=== PATIENT | male | born 1980 | race Caucasian/White ===

== ENCOUNTER 2017-07-13 06:45 | Day surgery (SDC) | payer OTHER ==
[~2017-07-13] VITALS: Ht 170.2 cm; Wt 108.0 kg
[~2017-07-13 06:45] MED LIST: ANTACID LIQUID355 ML PO; DICLOFENAC SODI75 MG PO; EPIPEN 2-P0.3 MG/0.3 IM; EPIPEN JR0.15 MG/0. IM; MAALOX ADVANCE770 ML PO; NICOTINE PATCH1 EAC1 TD; NON-ASPIRIN EX500 M1 PO; OMEPRAZOLE40 MG PO; PEPCID20 MG PO; PROAIR HFA8.5 GM INH
--- NOTE | 2017-07-13 09:31 | NUR ---
I REQUESTED ENTRANCE INTO PT'S RM-HE MOTIONED ME IN. I INTRODUCED MYSELF, SAID MICHEL TO HIS SIGNIFICANT OTHER, AND PT ASKED WHO I WAS AGAIN, AND WHAT I WAS DOING IN HIS RM. I STATED AGAIN MY NAME AND TITLE, AND HE SAID, "PLEASE LEAVE" WELL VERY STRONGLY AND FORCEFULLY STATED, "GET OUT NOW. I DON'T KNOW WHY YOU ARE HERE, JUST LEAVE NOW". I HONORED HIS REQUEST AND IMMEDIATELY. HE SAID SOMETHING ELSE UNDER HIS BREATH I DID NOT UNDERSTAND. I IMMEDIATELY WENT TO [facility] AND SHARED MY EXPERIENCE WITH PT TO HER. SHE THANKED ME. GOD MARTÍN
--- NOTE | 2017-07-13 10:04 | NUR ---
[facility]13/17 [facility]4 [facility] O[facility] DECRE[facility] TO 6L VIA MASK.
--- NOTE | 2017-07-13 10:57 | NUR ---
PT IS BACK TO FROM PACU. UPON ARRIVAL TO HIS ROOM HE REPORTS NEEDING TO URINATE REALLY BAD, AFTER VITALS AND REPORT ARE COLLECTED PT IS ASSISTED UP OUT OF BED AND TO THE BATHROOM. PT IS ABLE TO VOID 475ML OS URINE. PT C/O PAIN IN HIS SKULL SITE, REPORTING NO PAIN IN HIS LEG. WATER AT THE BEDSIDE. CALL LIGHT WITHIN REACH. REQUESTING JELLO. NO OTHER C/O'S AT THIS TIME. WILL REASSESS WITHIN THE HOUR.
[2017-07-13] MEDS ORDERED: NORCO 5-325 TA1 EACH PO (11:06)
--- NOTE | 2017-07-13 11:32 | NUR ---
1132-PATIENT WALKING AROUND IN ROOM, GETTING DRESSED. REPORTS PAIN 10/10 HEAVY PAIN TO HEAD. DRESSING CDI. 2 NORCOS GIVEN TO PATIENT. PATIENT REPORTING READY TO LEAVE. PATIENT EDUCATED ON NEED TO STAY FOR ANOTHER 30 MINUTES. PATIENT VERBALIZED UNDERSTANDING. AT BEDSIDE.
--- NOTE | 2017-07-13 12:07 | NUR ---
LE 1149: PT IS UP WALKING ROOM, DRESSED AND READY TO DISCHARGE. PT HAS MET ALL CRITERIA TO DC. IV IS REMOVED, DC INSTRUCTIONS GIVEN, ALL QUESITONS ASKED AND ANSWERED.
--- NOTE | 2017-07-14 11:31 | OR ---
[facility] [address] [place], [place] [address] Signed DATE OF PROCEDURE: 07/13/17 PREOPERATIVE DIAGNOSES Subcutaneous frontal scalp lesion (15-20 mm). Left mid pretibial subcutaneous lesion (12-15 mm). 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 Left mid pretibial subcutaneous sebaceous cyst (12-15 mm). PROCEDURE Excision of subcutaneous frontal scalp lesion. Excision of left mid pretibial subcutaneous lesion. ESTIMATED BLOOD LOSS: None. INDICATIONS Neri is a 36-year-old gentleman who was asked to see me in the office with 2 lesions. He has a left mid pretibial subcutaneous lesion around 12-15 mm in diameter. He thinks he hit that area with a chain saw a few years ago. He thought it healed up and now it is swollen, it is red and painful and he said it shoots pain up his leg. He said he is pretty worried about it and he had mentioned it to his primary care provider. In addition, he has a subcutaneous mass over the top of his frontal scalp. It is just behind the hairline. The whole area was almost 3. 5 to 4 cm in diameter. He said it is getting difficult to put on his hat. He finally decided he wanted me to look at that as well. He took a course of doxycycline and neither lesion cleared up. I explained to Neri and his that both lesions could be r e moved surgically. The lesion on the scalp was far too large to do in the office and it needs good lighting with cautery for excellent hemostasis. The lesion over the left pretibial area would be easy enough to remove. I explained to Neri and his there is risk to surgery including, but not limited to bleeding, infection, scarring, change in contour of the skin as well as recurrent lesions in the same or other locations. They had expressed understanding and wished to proceed. PROCEDURE NOTE I met with Noy espinoza and his in our preop area. 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 Consequently, it was quite easy to see the lesion on the frontal scalp, that was easily marked. In addition, the lesion on his left mid pretibial area was also easily located and we circled that as well. After this, Neri was taken into the operating room and placed in the supine position under general anesthesia with our LMA mask. He was given preoperative antibiotics al o ng with subcutaneous heparin. SCDs were utilized. We approached the Electronically Signed By: NOE RENE MD 07/14/17 1131 PATIENT NAME: NERI PHOENIX OPERATIVE REPORT DATE OF : 78 PHYSICIAN: NOE RENE MD REPORT #: [id number] REPORT IS CONFIDENTIAL AND NOT TO BE RELEASED WITHOUT AUTHORIZATION [address] [address] Signed scalp lesion first. We made a transverse incision to keep our scar within the hairline. We carefully went down to the lesion and after some careful dissection and excellent hemostasis with our needlepoint cautery, we found that he indeed had a lipoma. We carefully removed that lesion and it was probably 15-20 mm in diameter. Local anesthetic had been injected in and around the lesion. We closed the dermis with interrupted 5-0 subcuticular Monocryl sutures. The skin edges were closed with a running 6-0 fast absorbing plain gut suture. The wound had been irrigated and suctioned out until clear. Dry gauze and tape were then applied. After this, we approached his left mid pretibial lesion. A vertical incision was made over that and carefully went around that with our cautery and we found that he had a sebaceous cyst, probably 12-15 mm in diameter. It was completely excised and passed off the field. We used interrupted 2-0 nylon vertical mattress suture to close the skin. We then used our 6-0 fast absorbing plain gut suture to approximate the skin edges. Dry gauze and tape were then applied. Neri was then awakened from his anesthesia, extubated in the OR, taken to recovery room in stable condition. MD IKE Parks/Emigdio /[id number] cc: Raphael Nascimento MD Electronically Signed By: NOE RENE MD 07/14/17 1131 PATIENT NAME: NERI PHOENIX OPERATIVE REPORT DATE OF : 78 PHYSICIAN: NOE RENE MD REPORT #: [id number] REPORT IS CONFIDENTIAL AND NOT TO BE RELEASED WITHOUT AUTHORIZATION
== END 2017-07-13 12:00 | disposition home or self-care (01) ==
LOC: DS 06:45
PROVIDERS: Colon & Rectal Surgery
PROC: 0HBLXZZ Excision of Left Lower Leg Skin, External Approach (ICD-10-PCS; 2017-07-13)
PROC: 0JB00ZZ Excision of Scalp Subcutaneous Tissue and Fascia, Open Approach (ICD-10-PCS; 2017-07-13)
PROC: 0JB00ZZ Excision of Scalp Subcutaneous Tissue and Fascia, Open Approach (ICD-10-PCS; principal; 2017-07-13 08:15)
DX: D17.0 Benign lipomatous neoplasm of skin and subcutaneous tissue of head, face and neck (principal); J45.909 Unspecified asthma, uncomplicated; K21.9 Gastro-esophageal reflux disease without esophagitis; Z87.891 Personal history of nicotine dependence; Z91.030 Bee allergy status; Z98.890 Other specified postprocedural states; Z79.899 Other long term (current) drug therapy; Z88.5 Allergy status to narcotic agent; Z88.8 Allergy status to other drugs, medicaments and biological substances
CPT/HCPCS: 00300; J0330; J0690; J1100; J1644; J2250; J2405; J2704; J3010; J7120

== ENCOUNTER 2018-01-29 18:06 | Emergency (ER) | payer OTHER ==
[~2018-01-29] VITALS: Ht 170.2 cm; Wt 99.8 kg
--- OUTSIDE RECORDS SUMMARY | ~2018-01-29 | XMS | Clinical Summary ---
Demographics + + + | Address | [address] | | | [place] [address] | + + + | Home Phone | | + + + | Preferred Language | Unknown | + + + | Marital Status | Unknown | + + + | Congregation Affiliation | Unknown | + + + | Race | Unknown | + + + | Ethnic Group | Unknown | + + + Author + + + | Author | [facility] | + + + | Organization | [facility] | + + + | Address | Unknown | + + + | Phone | Unavailable | + + + Care Team Providers + +------+ + | Care Flatbed Truck Driver Name | Role | Phone | + +------+ + PP | Unavailable | + +------+ + Allergies Not on File Current Medications Not on file Active Problems Not on file Social History + +-------+ +--------+------+ | Tobacco Use | Types | Packs/Day | Years | Date | | | | | Used | | + +-------+ +--------+------+ | Never Assessed | | | | | + +-------+ +--------+------+ + + + | Sex Assigned at | Date Recorded | | | | + + + | Not on file | | + + + Plan of Treatment + + + + + | Health Maintenance | Due Date | Last Done | Comments | + + + + + | Vaccine: | | | | | Dtap/Tdap/Td (1 - | 9 | | | | Tdap) | | | | + + + + + | Vaccine: Influenza | | | | | (Season Ended) | 8 | | | + + + + + Results Not on filefrom Last 3 Months Insurance + +--------+ +------+-------+ + | Payer | Benefi | Subscriber | Type | Phone | Address | | | t Plan | ID | | | | | | / | | | | | | | Group | | | | | + +--------+ +------+-------+ + | MEDICAID | [employer] | xxxxxxxx | | | [address] | | | N | | | | [place] | | | [place] | | | | [address] | | | INFORMATION OFFICER | | | | | + +--------+ +------+-------+ + + +--------+ +--------+ + + | Guarantor Name | Accoun | Relation to | Date | Phone | Billing Address | | | t Type | Patient | of | | | | | | | | | | + +--------+ +--------+ + + | NERI PHOENIX | Person | Self [birth year] Home: | [address] | | | [place] | | 1981 | [phone] | [place] [address] | | | [place] | | | [phone] | | + +--------+ +--------+ + +"
--- OUTSIDE RECORDS SUMMARY | ~2018-01-29 | XMS | Clinical Summary ---
Demographics + + + | Address | [address] | | | [place] [address] | + + + | Home Phone | | + + + | Preferred Language | Unknown | + + + | Marital Status | Unknown | + + + | Hinduism Affiliation | Unknown | + + + | Race | Unknown | + + + | Ethnic Group | Unknown | + + + Author + + + | Author | [facility] | + + + | Organization | [facility] | + + + | Address | Unknown | + + + | Phone | Unavailable | + + + Care Team Providers + +------+ + | Care Blender Operator Name | Role | Phone | + [...] | | [place] | | | | [phone] | | | SPEECH THERAPY TEACHER | | | | | + +--------+ [...] Self | [birth year] Home: | [address] | | | [place] | | 1981 | [phone] | [place] [address] | | | [place] | | | [address] | | + +--------+ +--------+ + +"
[~2018-01-29 18:06] MED LIST changes: +NORCO 5-325 TA1 EACH PO
[2018-01-29] MEDS ORDERED: METHYLPREDNISOLO4 M1 PO (18:27)
[2018-01-29] MEDS ORDERED: ZITHROMAX250 MG PO (18:27)
== END 2018-01-29 19:06 | disposition home or self-care (01) ==
LOC: ED 18:06
DX: J45.901 Unspecified asthma with (acute) exacerbation (principal); Z88.5 Allergy status to narcotic agent; Z88.6 Allergy status to analgesic agent
CPT/HCPCS: 94640; 96374; 96375; 99283; J2060; J2930

== ENCOUNTER 2019-01-10 09:06 | Emergency (ER) | payer OTHER ==
[~2019-01-10] VITALS: Ht 170.2 cm; Wt 99.8 kg
--- OUTSIDE RECORDS SUMMARY | ~2019-01-10 | XMS | Encounter Summary ---
Demographics + + + | Address | [address] | | | [place] [address] | + + + | Home Phone | | + + + | Preferred Language | Unknown | + + + | Marital Status | Single | + + + | Jainism Affiliation | Unknown | + + + | Race | Unknown | + + + | Ethnic Group | Unknown | + + + Author + + + | Author | [facility] | + + + | Organization | [facility] | + + + | Address | Unknown | + + + | Phone | Unavailable | + + + Support + + +---------+ + | Name | Relationship | Address | Phone | + + +---------+ + | None,Provided | ECON | Unknown | | + + +---------+ + Care Team Providers + +------+ + | Care Wood Scaler Name | Role | Phone | + +------+ + | None, Per Pt | PCP | 000-0000 | + +------+ + Encounter Details +--------+ + + + + | Date | Type | Department | Care Team | Description | +--------+ + + + + | 01/06/ | Procedure | [facility] | | | | 2019 | [facility] | | | | | | Operating Room [address] | | | | | | [facility] | | | | | | [place] [address] | | | | | | [phone] | | | +--------+ + + + + Social History + +-------+ +--------+------+ | Tobacco Use | Types | Packs/Day | Years | Date | | | | | Used | | + +-------+ +--------+------+ | Never Smoker | | | | | + +-------+ +--------+------+ + +---+---+---+ | Smokeless Tobacco: | | | | | Never Used | | | | + +---+---+---+ + + +---------+ + | Alcohol Use | Drinks/We | oz/Week | Comments | | | ek | | | + + +---------+ + | No | | | | + + +---------+ + + + + | Sex Assigned at | Date Recorded | | | | + + + | Not on file | | + + + as of this encounter Plan of Treatment +--------+ + + + + | Date | Type | Specialty | Care Team | Description | +--------+ + + + + | 01/16/ | Clinical | Neurosurgery | Hansel Treviño, | | | 2018 | Support | | [facility] [address] | | | | | | [address], | | | | | | [place] [address] | | | | | | [phone] | | | | | | | | +--------+ + + + + as of this encounter Visit Diagnoses Not on filein this encounter"
--- OUTSIDE RECORDS SUMMARY | ~2019-01-10 | XMS | Encounter Summary ---
Demographics + + + | Address | [address] | | | [place] [address] | + + + | Home Phone | | + + + | Preferred Language | Unknown | + + + | Marital Status | Single | + + + | Roman Catholic Affiliation | Unknown | + + + | Race | Unknown | + + + | Ethnic Group | Unknown | + + + Author + + + | Author | [facility] | + + + | Organization | [facility] | + + + | Address | Unknown | + + + | Phone | Unavailable | + + + Support + + +---------+ + | Name | Relationship | Address | Phone | + + +---------+ + | None,Provided | ECON | Unknown | | + + +---------+ + Care Team Providers + +------+ + | Care Communications Editor Name | Role | Phone | + +------+ + | None, Per Pt | PCP | 000-0000 | + +------+ + Reason for Visit Auth/Cert +--------+--------+ + + + + | Status | Reason | Specialty | Diagnoses / | Referred By | Referred To | | | | | Procedures | Contact | Contact | +--------+--------+ + + + + | | | | Diagnoses | | Una, | | | | | see chart | | MD Mateus | | | | | note | | [address] | | | | | | | [address] | | | | | | | [place] | | | | | | | [address] Phone: | | | | | | | [phone] | | | | | | | Fax: | | | | | | | [phone] | +--------+--------+ + + + + Encounter Details +--------+ + + + + | Date | Type | Department | Care Team | Description | +--------+ + + + + | 01/06/ | Anesthesia | [facility] | | | 2019 | Event | [facility] | MD Melissa [address] | | | | | Operating Room [address] | | | | [address] | [place] [address] | | | | | [place] [address] | [phone] | | | | | [phone] | | | +--------+ + + + + Anesthesia Record + + + + + | Procedure Name | Responsible | Anesthesia Start | Anesthesia Stop Time | | | Anesthesiologist | Time | | + + + + + | LUMBAR - DISCECTOMY | Nova Pham, | 01/06/19 1137 | 01/06/19 1327 | | (Right Spine Lumbar) | MD | | | + + + + + +----+---+ + + | Da | T | Event | Comment | | te | i | | | | | m | | | | | e | | | +----+---+ + + | 03 | 1 | An Start | Pre-anesthetic vital signs reassessed. | | /1 | 1 | | | | 8/ | 3 | | | | 20 | 7 | | | | 19 | | | | +----+---+ + + | | 1 | An | | | | 1 | Induction | | | | 4 | | | | | 0 | | | +----+---+ + + | | 1 | An | | | | 1 | Intubation | | | | 4 | | | | | 3 | | | +----+---+ + + | | 1 | Quick Note | TOF 4/4 | | | 2 | | | | | 5 | | | | | 9 | | | +----+---+ + + | | 1 | An | | | | 3 | Emergence | | | | 1 | | | | | 5 | | | +----+---+ + + | | 1 | Extubation | | | | 3 | | | | | 2 | | | | | 0 | | | +----+---+ + + | | 1 | an stop | | | | 3 | data | | | | 2 | | | | | 1 | | | +----+---+ + + | | 1 | An Stop | | | | 3 | | | | | 2 | | | | | 7 | | | +----+---+ + + +------+ | Meds | +------+ + +---------+ | Name | Total | + +---------+ | ceFAZolin (ANCEF) 1 g | 2 g | + +---------+ | midazolam 1 mg/mL | 2 mg | + +---------+ | fentanyl 50 mcg/mL | 300 mcg | + +---------+ | lidocaine 2% | 80 mg | + +---------+ | propofol bolus | 200 mg | + +---------+ | ROCuronium 10 mg/mL | 50 mg | + +---------+ | dexamethasone 4 mg/mL | 8 mg | + +---------+ | ondansetron 2 mg/mL | 4 mg | + +---------+ | glycopyrrolate 0.2 mg/mL | 0.8 mg | + +---------+ | neostigmine | 5 mg | + +---------+ | plasmalyte-A | 0 mL | + +---------+ + + | Name | + + | N2O | + + | O2 | + + | Air | + + | Sevoflurane-EX | + + | N2O | + + + + | No blood administrations on file. | + + +--------+ + + + | Type | Details | Placement | Removal | +--------+ + + + | Wound | 01/06/19; 1211; Incision; Back | 01/06/19 1211 by | | | | | Stalin Cordoba RN | | +--------+ + + + | Periph | Placement Date: 01/06/19; | 01/06/19 1056 by Bernardo | 01/06/19 1517 by | | heriberto | Placement Time: 1056; Removal | Katie Browning RN | Sully Mayer RN | | IV | Date: 01/06/19; Removal Time: | | | | | 1517; Size (Gauge): 20 G; | | | | | Orientation: Right; Location: | | | | | Forearm; Site Prep: | | | | | Chlorhexidine-Isopropyl Alcohol; | | | | | Insertion Attempts: 2 | | | +--------+ + + + | ETT | Placement Date: 01/06/19; | 01/06/19 1143 by | 01/06/19 1355 by Bernardo | | | Placement Time: 1143; Removal | Nova Abebealeida Ankit, | Katie Browning RN | | | Date: 01/06/19; Removal Time: | MD | | | | 1355; Mask Airway: Easy; Blade | | | | | Type: Hernandez; Blade Size: 2; ETT | | | | | Type: Standard ETT; ETT Size | | | | | (Fr): 7.5; Technique: Direct | | | | | Laryngoscope; Grade: I; Insertion | | | | | attempts: 1; Confirmation: | | | | | EtCO2, Direct visualization; | | | | | Intubation Details: Easy; Taped | | | | | at (cm): 23; Secured at: Lips | | | +--------+ + + + in this encounter Social History + +-------+ +--------+------+ | Tobacco [...] Neurosurgery | Hansel Treviño, | | | 2019 | Support | | BROACH GRINDER [address] | | | | | | [address], | | | | | | [place] [address] | | | | | | [phone] | | | | | | | | +--------+ + + + + as of this encounter Visit Diagnoses Not on filein this encounter Administered Medications + +--------+ +------+------+------+ | Medication Order | MAR | Action | Dose | Rate | Site | | | Action | Date | | | | + +--------+ +------+------+------+ | ceFAZolin (ANCEF) injection | Given | | 2 g | | | | Intravenous, PRN, Starting Mon | | 9 11:48 | | | | | 01/06/19 at 1148, Anesthesia | | PDT | | | | | Intra-op | | | | | | + +--------+ +------+------+------+ +---+---+ | | | +---+---+ + +-------+ +------+---+---+ | dexamethasone (DECADRON) 4 | Given | | 8 mg | | | | MG/ML injection PRN, Starting | | 9 11:40 | | | | | 01/06/19 at 1140, Anesthesia | | PDT | | | | | Intra-op | | | | | | + +-------+ +------+---+---+ +---+---+ | | | +---+---+ + +---------+ +---+---+---+ | electrolyte-A (PLASMALYTE-A) | New Bag | | | | | | solution Intravenous, Continuous | | 9 11:37 | | | | | PRN, Starting Sun01/06/19 at | | PDT | | | | | 1137, Anesthesia Intra-op | | | | | | + +---------+ +---+---+---+ +---+---+ | | | +---+---+ + +-------+ +---------+---+---+ | fentaNYL (SUBLIMAZE) injection | Given | | 100 mcg | | | | Intravenous, PRN, Starting Mon | | 9 12:01 | | | | | 01/06/19 at 1140, Anesthesia | | PDT | | | | | Intra-op | | | | | | + +-------+ +---------+---+---+ +-------+ +--------+---+---+ | Given | | 50 mcg | | | | | 9 13:25 | | | | | | PDT | | | | +-------+ +--------+---+---+ | Given | | 50 mcg | | | | | 9 13:27 | | | | | | PDT | | | | +-------+ +--------+---+---+ +---+---+ | | | +---+---+ + +-------+ +--------+---+---+ | glycopyrrolate (ROBROBB) | Given | | 0.8 mg | | | | injection PRN, Starting Mon | | 9 13:06 | | | | | 01/06/19 at 1306, Anesthesia | | PDT | | | | | Intra-op | | | | | | + +-------+ +--------+---+---+ +---+---+ | | | +---+---+ + +-------+ +-------+---+---+ | lidocaine 2 % (MDV) 2 % | Given | | 80 mg | | | | injection Intravenous, PRN, | | 9 11:40 | | | | | Starting [facility] 01/06/19 at 1140, | | PDT | | | | | Anesthesia Intra-op | | | | | | + +-------+ +-------+---+---+ +---+---+ | | | +---+---+ + +-------+ +------+---+---+ | midazolam (VERSED) injection | Given | | 2 mg | | | | PRN, Starting Sun01/06/19 at | | 9 11:37 | | | | | 1137, Anesthesia Intra-op | | PDT | | | | + +-------+ +------+---+---+ +---+---+ | | | +---+---+ + +-------+ +------+---+---+ | neostigmine (PROSTIGMINE) | Given | | 5 mg | | | | injection PRN, Starting Mon | | 9 13:06 | | | | | 01/06/19 at 1306, Anesthesia | | PDT | | | | | Intra-op | | | | | | + +-------+ +------+---+---+ +---+---+ | | | +---+---+ + +-------+ +------+---+---+ | ondansetron (ZOFRAN) injection | Given | | 4 mg | | | | PRN, Nausea, Vomiting, Starting | | 9 13:06 | | | | | 01/06/19 at 1306, Anesthesia | | PDT | | | | | Intra-op | | | | | | + +-------+ +------+---+---+ +---+---+ | | | +---+---+ + +-------+ +--------+---+---+ | propofol (DIPRIVAN) injection | Given | | 200 mg | | | | Intravenous, PRN, Starting Sun | | 11:40 | | | | | 01/06/19 at 1140, Anesthesia | | PDT | | | | | Intra-op | | | | | | + +-------+ +--------+---+---+ +---+---+ | | | +---+---+ + +-------+ +-------+---+---+ | rocuronium (ZEMURON) injection | Given | | 50 mg | | | | PRN, Starting Sun01/06/19 at | | 9 11:40 | | | | | 1140, Anesthesia Intra-op | | PDT | | | | + +-------+ +-------+---+---+ +---+---+ | | | +---+---+ in this encounter"
--- OUTSIDE RECORDS SUMMARY | ~2019-01-10 | XMS | Encounter Summary ---
Demographics + + + | Address | [address] | | | [place] [address] | + + + | Home Phone | | + + + | Preferred Language | Unknown | + + + | Marital Status | Single | + + + | Zoroastrianism Affiliation | Unknown | + + + | Race | Unknown | + + + | Ethnic Group | Unknown | + + + Author + + + | Author | [facility] | + + + | Organization | [facility] | + + + | Address | Unknown | + + + | Phone | Unavailable | + + + Support + + +---------+ + | Name | Relationship | Address | Phone | + + +---------+ + | None,Provided | ECON | Unknown | | + + +---------+ + Care Team Providers + +------+ + | Care Routing Equipment Tender Name | Role | Phone | + [...] | | see chart | | MD Jazzy | | | | | note | | [address] | | | | | | | Drive | | | | | | | [place] | | | | | | | [address] Phone: | | | | | | | [phone] | | | | | | | Fax: | | | | | | | [phone] | +--------+--------+ + + + + Encounter Details +--------+ + + + + | Date | Type | Department | Care Team | Description | +--------+ + + + + | 01/06/ | Hospital | [facility] | Jazzy Heart MD | Herniated lumbar | | 2019 | [facility] | [address] | intervertebral disc | | | | [address] | Drive [place], [place] | (Primary Dx); Lumbar | | | | [place] [address] | [address] | disc herniation | | | | [phone] | | with radiculopathy; | | | | | | Lumbar radiculopathy | +--------+ + + + + Social [...] + + + as of this encounter Last Filed Vital Signs + + + + | Vital Sign | Reading | Time Taken | + + + + | Blood Pressure | 125/72 | 01/06/2019 3:25 PM PDT | + + + + | Pulse | 84 | 01/06/2019 3:25 PM PDT | + + + + | Temperature | 36.7 C (98 F) | 01/06/2019 3:25 PM PDT | + + + + | Respiratory Rate | 16 | 01/06/2019 3:25 PM PDT | + + + + | Oxygen Saturation | 96% | 01/06/2019 3:25 PM PDT | + + + + | Inhaled Oxygen | - | - | | Concentration | | | + + + + | Weight | 103.2 kg (227 lb 8.2 | 01/06/2019 10:27 AM PDT | | | oz) | | + + + + | Height | 170.2 cm (5' 7") | 01/06/2019 10:27 AM PDT | + + + + | Body Mass Index | 35.63 | 01/06/2019 10:27 AM PDT | + + + + in this encounter Discharge Instructions Bernardo Browning RN - 01/06/2019Dr. Heart Spine Surgery Discharge Instructions Call the office to confirm your first post-operative appointment. In genera l, you will be seen approximately 10-14 days after surgery for a wound check. YOUR INCISION: The dressing should be changed daily until there is no drainage then the incision can be le ft open to air. Some drainage can be normal for several days, but you should call if there is persistent or unusual drainage, swelling, or redness which develops. If your incision has steri-strips over it, these will come off on their own usually in the first 1-2 weeks. Do not apply creams, lotions, or ointments to the incision unless instructed to do so. Krish p the incision clean and dry. You may shower after 48 hours and pat the incision dry, but try to avoid having the water r un directly on the incision. You can cover the incision with a waterproof Tegaderm for the first few days but after this it is not necessary. Do not soak the incision under water suc h as in a pool or bath. You can usually resume the pool or bath about 3 weeks after the sarai dina if there are no wound healing problems. ACTIVITY: Do not lift more than 10 pounds (approximately one gallon of milk). You will be given inst ruction about gradually increasing your lifting at your follow-up appointment. Walking can be done as much as tolerated, but start with short distances on firm, level sarai faces. Avoid bending, twisting, pushing, pulling, overhead lifting, or prolonged sitting. You may sleep in any position which is comfortable for you. No fiction and nonfiction author, yard work, or recreational activities unless otherwise instructed. You may resume driving after your first post-operative visit (10-14 days after the surgery) . You should NOT be driving or operating machinery if taking pain medications or muscle rel axers. Return to work will depend on your occupation and will be discussed individually with each patient. DIET: Resume your regular diet. Remember, pain medications cause constipation so use an over-the -counter stool softener (i.e. Colace, Senokot), and increase your water and fiber intake. M agnesium citrate is a bowel prep agent and can be used if nothing else is working. MEDICATIONS: You may resume your home medications. You may resume aspirin (if you were taking this) aft er one week. If you were taking Coumadin or Plavix and it was stopped before surgery, resta rting this needs to be discussed with your physician. Take your pain medications and muscle relaxers "as needed". You may wean off of them as yo ur pain decreases. Medication refills can be requested from your pharmacy. Please request these at least 2 days before you run out. The pharmacy will contact our office to approve t he refill. Medications will not be refilled on weekends or after office hours. WHEN TO CALL THE DOCTOR: If you have a fever over 101.0 degrees If you have any unusual drainage, odor, swelling, or redness of the incision Inability to urinate Constipation which does not resolve after a few days If you have any new pain, numbness, or weakness in your arms or legs Any other concerns After Your Surgery You ve just had surgery. During surgery, you received medication called anesthesia to krish p you comfortable and pain-free. After surgery, you may experience some pain or nausea. This is common. Going Home Have an adult family member or friend drive you home. For the first 24 hours after your sarai dina: ? Do not drive or use heavy equipment. ? Do not make important decisions or sign legal documents. ? Avoid alcohol. ? Have someone stay with you, if needed. He or she can watch for problems and help keep you safe. Be sure to keep all follow-up appointments with your doctor. And rest after your procedure for as long as your doctor tells you to. Coping with Pain If you have pain after surgery, pain medication will help you feel better. Take your medica tion as directed, before pain becomes severe. Consider other ways to control pain, such as with heat, ice, and relaxation. To get the best relief possible, remember these points: ? Pain medications can upset your stomach. Taking them with a little food may help. ? Most pain relievers taken by mouth need at least 20 to 30 minutes to take effect. ? Taking medication on a schedule can help you remember to take it. Try to time your medica tion so that you can take it before beginning an activity, such as dressing, walking, or sit ting down for dinner. ? Don t drink alcohol while taking pain medication. ? Don t drive or operate machinery while taking pain medications as they can slow your re flexes. If your health care provider tells you to take acetaminophen or ibuprofen to help relieve y our pain, ask him or her how much you are supposed to take each day. Constipation ? Constipation is a common side effect of pain medications and anesthetics. Contact your do ctor before taking any medications like laxatives or stool softeners to help relieve constip ation, unless they have been prescribed for you. ? Drinking lots of non-alcoholic fluids and eating foods like fruits and vegetables that ar e high in fiber can also help. Managing Nausea Some people have an upset stomach after surgery. This is often due to anesthesia, pain, christina n medications, or the stress of surgery. If you were on a special diet before surgery, ask your doctor if you should follow it during recovery. These tips may help: ? Don t push yourself to eat. Your body will tell you when to eat and how much. ? Start off with clear liquids and soup. They are easier to digest. Slowly move to solid f oods. Don t eat fatty, rich, or spicy foods at first. ? Don t force yourself to have three large meals a day. Instead, eat smaller amounts more often. Blood Clot Prevention Deep vein thrombosis (DVT) is a clot that forms in your deep veins usually in the leg o r thigh. A pulmonary embolism (PE) occurs when a clot in the bloodstream travels through th e heart and into the lungs. If the clot becomes stuck in a blood vessel in the lungs, blood flow can be blocked which causes life-threatening heart and lung problems. The following are prevention tips: ? Elevate your legs whenever they feel swollen or heavy ? Maintain a healthy weight ? Quit smoking ? Avoid sitting, standing, or lying down for long periods without moving your legs and feet . o When traveling by car, make frequent stops to get out and move around. o On long airplane, train, or bus rides, get up and move around when possible. o If you can t get up, wiggle your toes and tighten your calves to keep your blood moving . If you have any of these symptoms of DVT or PE, call your doctor: ? Swelling, pain, or both, often in one limb ? Redness or warmth, often in one limb ? Sudden, continuous pain deep in your muscle ? Worsening ache when you are active or when you stand still for a long time ? Rapid, pounding, or unusual heartbeat ? Sweating more than usual. ? Chest pain, trouble breathing, coughing up blood, skin turning blue, or fainting Call 911. in this encounter Medications at Time of Discharge + + +--------+---------+ + + | Medication | Sig. | Disp. | Refills | Start | End Date | | | | | | Date | | + + +--------+---------+ + + | albuterol | | | 0 | 12/19/19 | | | (PROVENTIL | | | | 19 | | | HFA;VENTOLIN HFA) | | | | | | | 108 (90 Base) | | | | | | | MCG/ACT inhaler | | | | | | + + +--------+---------+ + + | diazePAM (VALIUM) | Take 1 tablet by | 30 | 0 | 01/07/20 | | | 5 MG | mouth every 6 (six) | tablet | | 19 | | | tabletIndications: | hours as needed for | | | | | | Herniated lumbar | Muscle spasms. | | | | | | intervertebral disc | | | | | | + + +--------+---------+ + + | | Take 1-2 tablets by | 60 | 0 | 01/07/20 | | | HYDROcodone-acetamin | mouth every 6 (six) | tablet | | 19 | | | ophen (NORCO) | hours as needed for | | | | | | 7.5-325 MG per | Pain. | | | | | | tablet | | | | | | + + +--------+---------+ + + | | Inhale 3 mLs into | | | | | | ipratropium-albutero | the lungs. | | | | | | l (DUO-NEB) 0.5-2.5 | | | | | | | mg/3mL | | | | | | + + +--------+---------+ + + | QVAR REDIHALER 40 | | | 0 | 12/18/19 | | | MCG/ACT inhaler | | | | 19 | | + + +--------+---------+ + + as of this encounter Progress Notes Jazzy Heart MD - 01/06/2019 2:38 PM [facility] Service: Neurological Surgery Progress Note Hospital Day: LOS: 0 days Post-Op Day: Day of Surgery SUBJECTIVE Doing well. Wants to go home. OBJECTIVE Vital Signs: BP 117/57 | Pulse 80 | Temp 99.8 F (37.7 C) | Resp 23 | Ht 1.702 m (5' 7") | Wt 10 3.2 kg (227 lb 8.2 oz) | SpO2 94% | BMI 35.63 kg/m Input/Output Last 3 shifts No intake/output data recorded. Input/Output Last shift I/O this shift: In: - Out: 300 [Urine:300] Physical Exam: Alert and oriented x 3. Moves UE and LE 02/23. Incision C/D/I. ASSESSMENT & PLAN Discharge home. Followup ~ 2 weeks postop. Discharge instructions given (and provided in preop packet and discharge papers). Call office [phone] if any questions or problems or return to [facility]. JAZZY HEART MD 01/06/2019 in this encounter Plan of Treatment +--------+ + + + + | Date | Type | Specialty | Care Team | Description | +--------+ + + + + | 01/16/ | Clinical | Neurosurgery | Hansel Treviño, | | | 2019 | Support | | CUT OUT MACHINE OPERATOR [address] | | | | | | [address] [place], | | | | | | [place] [address] | | | | | | [phone] | | | | | | | | +--------+ + + + + as of this encounter Procedures + +--------+ + + + | Procedure Name | Priori | Date/Time | Associated Diagnosis | Comments | | | ty | | | | + +--------+ + + + | BALTA CHAKRABORTY | Routin | 01/06/2019 | | Results for this | | TO 1 HOUR | e | 1:30 PM | | procedure are in the | | | | PDT | | results section. | + +--------+ + + + | LUMBAR - DISCECTOMY | | 01/06/2019 | see chart note | | | | | 11:00 AM | | | | | | PDT | | | + +--------+ + + + +---+--------+ | | | | | Specia | | | l | | | Needs | | | | | | micros | | | cope, | | | jose | | | | | | frame, | | | 1 | | | hour, | | | Pt has | | | woke | | | up | | | during | | | EGD, | | | Combat | | | zoë in | | | PACU | | | in | | | past, | | | sleep | | | apnea/ | | | no | | | CPAP | +---+--------+ in this encounter Results X-ray C-arm fluoro up to 1 hour (01/06/2019 1:30 PM) + + + | Impressions | Performed At | + + + | Surgical localization at the level of L4-5. Signed by: Yanet | [place] | | Parmjit Sign Date/Time: 01/06/2019 3:42 PM | RADIOLOGY | + + + + + + | Narrative | Performed At | + + + | C-ARM <60 W/FLUORO CLINICAL INFORMATION: discectomy right L4-5 | [facility] | | FINDINGS: 2.7 seconds of fluoroscopy was utilized by Dr. Jazzy Magana | RADIOLOGY | | Una during surgery. Surgical localization is noted at the level of | | | L4-5. Total number of images: 1. | | + + + + + | Procedure Note | + + | Yoandy Sharif Results In 01/06/2019 3:45 PM PDT C-ARM <60 W/FLUORO | | CLINICAL INFORMATION: | | discectomy right L4-5 | | FINDINGS: | | 2.7 seconds of fluoroscopy was utilized by Dr. Jazzy Heart during | | surgery. | | Surgical localization is noted at the level of L4-5. | | Total number of images: 1. | | IMPRESSION: | | Surgical localization at the level of L4-5. | | Signed by: Parmjit Holt | | Sign Date/Time: 01/06/2019 3:42 PM | + + + + + + + | Performing | Address | City/State/Zipcode | Phone Number | | Organization | | | | + + + + + | [facility] | [address] | [place] [address] | | + + + + + in this encounter Visit Diagnoses + + | Diagnosis | + + | Herniated lumbar intervertebral disc - Primary | + + | Displacement of lumbar intervertebral disc without myelopathy | + + | Lumbar disc herniation with radiculopathy | + + | Displacement of lumbar intervertebral disc without myelopathy | + + | Lumbar radiculopathy | + + | Thoracic or lumbosacral neuritis or radiculitis, unspecified | + + Admitting Diagnoses + + | Diagnosis | + + | Lumbar radiculopathy | + + | Thoracic or lumbosacral neuritis or radiculitis, unspecified | + + | Herniated lumbar intervertebral disc | + + | Displacement of lumbar intervertebral disc without myelopathy | + + | Lumbar disc herniation with radiculopathy | + + | Displacement of lumbar intervertebral disc without myelopathy | + + Administered Medications + +--------+---------+------+------+------+ | Medication Order | MAR | Action | Dose | Rate | Site | | | Action | Date | | | | + +--------+---------+------+------+------+ + +---+ | acetaminophen (TYLENOL) | | | suppository 650 mg 650 mg, | | | Rectal, Every 6 Hours PRN, Mild | | | Pain (1-3), Fever, Starting Mon | | | 01/06/19 at 1445 | | + +---+ | | | + +---+ | acetaminophen (TYLENOL) tablet | | | 650 mg 650 mg, Oral, Every 6 | | | Hours PRN, Mild Pain (1-3), | | | Fever, Starting 01/06/19 at | | | 1445 | | + +---+ | | | + +---+ | diazepam (VALIUM) injection 5 | | | mg 5 mg, Intravenous, Every 6 | | | Hours PRN, Anxiety, Muscle | | | spasms, Starting 01/06/19 at | | | 1420 | | + +---+ | | | + +---+ + +-------+ +------+---+---+ | diazePAM (VALIUM) tablet 5 mg | Given | | 5 mg | | | | 5 mg, Oral, Every 6 Hours PRN, | | 9 14:35 | | | | | Muscle spasms, Starting Mon | | PDT | | | | | 01/06/19 at 1420 | | | | | | + +-------+ +------+---+---+ +---+---+ | | | +---+---+ + +---------+ +---+---+---+ | electrolyte-A (PLASMALYTE-A) | New Bag | | | | | | solution Intravenous, | | 9 13:50 | | | | | Continuous, Starting 01/06/19 | | PDT | | | | | at 1100, Pre-op | | | | | | + +---------+ +---+---+---+ + +---+ | | | + +---+ | HYDROcodone-acetaminophen | | | (NORCO) 10-325 MG per tablet 1 | | | tablet 1 tablet, Oral, Every 4 | | | Hours PRN, Severe Pain (7-10), | | | Starting 01/06/19 at 1445 | | + +---+ | | | + +---+ | HYDROcodone-acetaminophen | | | (NORCO) 5-325 MG per tablet 1 | | | tablet 1 tablet, Oral, Every 4 | | | Hours PRN, Moderate Pain (4-6), | | | Starting 01/06/19 at 1445 | | + +---+ | | | + +---+ + +-------+ +--------+---+---+ | HYDROmorphone (DILAUDID) | Given | | 0.5 mg | | | | injection 0.5 mg 0.5 mg, | | 9 13:40 | | | | | Intravenous, Every 5 Min PRN, | | PDT | | | | | Pain, Option Two for pain scale | | | | | | | 5-07/31. If no relief, proceed to | | | | | | | option 3., Starting 01/06/19 | | | | | | | at 1307, PACU | | | | | | + +-------+ +--------+---+---+ + + +--------+---+---+ | Given | | 0.5 mg | | | | | 9 14:05 | | | | | | PDT | | | | + + +--------+---+---+ | Given by Other | | 0.5 mg | | | | | 9 14:13 | | | | | | PDT | | | | + + +--------+---+---+ + +---+ | | | + +---+ | HYDROmorphone (DILAUDID) | | | injection 0.5 mg 0.5 mg, | | | Intravenous, Every 3 Hours PRN, | | | Moderate Pain (4-6), Starting Mon | | | 01/06/19 at 1445 | | + +---+ | | | + +---+ | HYDROmorphone (DILAUDID) | | | injection 1 mg 1 mg, | | | Intravenous, Every 3 Hours PRN, | | | Severe Pain (7-10), Starting Mon | | | 01/06/19 at 1445 | | + +---+ | | | + +---+ + +-------+ +-------+---+---+ | ipratropium-albuterol (DUO-NEB) | Given | | 3 mLs | | | | 0.5-2.5 mg/3mL nebulizer | | 9 13:49 | | | | | solution 3 mL 3 mL, | | PDT | | | | | Nebulization, Every 6 Hours, | | | | | | | First dose on Sun01/06/19 at 1430 | | | | | | + +-------+ +-------+---+---+ + +---+ | | | + +---+ | ipratropium-albuterol (KASIO-NEB) | | | 0.5-2.5 mg/3mL nebulizer | | | solution Starting Sun01/06/19 at | | | 1343, For 1 dose | | + +---+ | | | + +---+ | ondansetron (ZOFRAN) injection | | | 4 mg 4 mg, Intravenous, Every 6 | | | Hours PRN, Nausea, Vomiting, | | | Starting Sun01/06/19 at 1445 | | + +---+ | | | + +---+ | ondansetron (ZOFRAN-ODT) | | | disintegrating tablet 4 mg 4 mg, | | | Oral, Every 6 Hours PRN, Nausea, | | | Vomiting, Starting 01/06/19 | | | at 1445 | | + +---+ | | | + +---+ | sodium chloride (PF) 0.9 % | | | flush 10 mL 10 mL, Intravenous, | | | Every 8 Hours, First dose on Mon | | | 01/06/19 at 1530 | | + +---+ | | | + +---+ in this encounter
--- OUTSIDE RECORDS SUMMARY | ~2019-01-10 | XMS | Encounter Summary ---
Demographics + + + | Address | [address] | | | [place] [address] | + + + | Home Phone | | + + + | Preferred Language | Unknown | + + + | Marital Status | Single | + + + | Pentecostalism Affiliation | Unknown | + + + | Race | Unknown | + + + | Ethnic Group | Unknown | + + + Author + + + | Author | [facility] | + + + | Organization | [facility] | + + + | Address | Unknown | + + + | Phone | Unavailable | + + + Support + + +---------+ + | Name | Relationship | Address | Phone | + + +---------+ + | None,Provided | ECON | Unknown | | + + +---------+ + Care Team Providers + +------+ + | Care Hotel Controller Name | Role | Phone | + [...] | | | | | | | [address] Phone: | | | | | | | [phone] | | | | | | | Fax: | | | | | | | [phone] | +--------+--------+ + + + + Encounter Details +--------+---------+ + + + | Date | Type | Department | Care Team | Description | +--------+---------+ + + + | 01/06/ | Surgery | [facility] | Jazzy Heart MD | LUMBAR - DISCECTOMY | | 2019 | | [facility] | [address] | | | | | Operating Room [address] | [address] [place], [place] | | | | | [address] | [address] | | | | | [place] [address] | | | | | | [phone] | | | +--------+---------+ + + + Social History + +-------+ [...] position which is comfortable for you. No drupal architect, yard work, or recreational activities unless otherwise [...] tablet by | 30 | 0 | //20 | | | 5 MG | mouth [...] tablets by | 60 | 0 | /18/20 | | | HYDROcodone-acetamin | mouth every [...] Jazzy Heart MD - 01/06/2019 2:38 PM [facility] Service: Neurological Surgery Progress Note Hospital Day: [...] oriented x 3. Moves UE and LE 5/5. Incision C/D/I. ASSESSMENT & PLAN Discharge home. Followup ~ 2 weeks postop. Discharge instructions given (and provided in preop packet and discharge papers). Call office [phone] if any questions or problems or return to [facility]. 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 Jazzy ROMERO | | Una during surgery. Surgical localization [...] | + + + + + | [facility] | [address] | [place] [address] | | + + + + + in this encounter Visit Diagnoses Not on filein this encounter Admitting Diagnoses + + | Diagnosis | [...] | | | + +---+ + +-------+ +---------+---+---+ | bacitracin 50,000 Units in | Given | | 500 mLs | | | | sodium chloride (IR) 500 mL OR | | 9 11:33 | | | | | medication mixture PRN, Starting | | PDT | | | | | 01/06/19 at 1133, Intra-op | | | | | | + +-------+ +---------+---+---+ + +---+ | | | + +---+ [...] | | | | option 3., Starting Sun01/06/19 | | | | | | | [...] | | | + +---+ | ipratropium-albuterol (DUO-NEB) | | | 0.5-2.5 mg/3mL nebulizer | | | solution Starting Sun01/06/19 at | | | 1343, For 1 dose | | + +---+ | | | + +---+ + +-------+ +-------+---+---+ | lidocaine-EPINEPHrine 1 | Given | | 6 mLs | | | | %[id number] injection PRN, | | 9 12:05 | | | | | Starting [facility] 01/06/19 at 1205, | | PDT | | | | | Intra-op | | | | | | + +-------+ +-------+---+---+ + +---+ | | | + +---+ | ondansetron (ZOFRAN) injection | | | 4 mg 4 mg, Intravenous, Every 6 | | | Hours PRN, Nausea, Vomiting, | | | Starting 01/06/19 at 1445 [...] | + +---+ + +-------+ +--------+---+---+ | thrombin (recombinant) | Given | | 5,000 | | | | (RECOTHROM) solution PRN, | | 9 12:09 | Units | | | | Starting Sun01/06/19 at 1209, | | PDT | | | | | Intra-op | | | | | | + +-------+ +--------+---+---+ +-------+ +--------+---+---+ | Given | | 5,000 | | | | | 9 12:10 | Units | | | | | PDT | | | | +-------+ +--------+---+---+ +---+---+ | | | +---+---+ in this encounter
--- OUTSIDE RECORDS SUMMARY | ~2019-01-10 | XMS | Encounter Summary ---
Demographics + + + | Address | [address] | | | [place] [address] | + + + | Home Phone | | + + + | Preferred Language | Unknown | + + + | Marital Status | Single | + + + | Sabianism Affiliation | Unknown | + + + | Race | Unknown | + + + | Ethnic Group | Unknown | + + + Author + + + | Author | [facility] [employer] | + + + | Organization | [facility] [employer] | + + + | Address | Unknown | + + + | Phone | Unavailable | + + + Support + + +---------+ + | Name | Relationship | Address | Phone | + + +---------+ + | None,Provided | ECON | Unknown | | + + +---------+ + Care Team Providers + +------+ + | Care Patient Escort Name | Role | Phone | + +------+ + | None, Per Pt | PCP | [id number] | + +------+ + Encounter Details +--------+ + + + + | Date | Type | Department | Care Team | Description | +--------+ + + + + | 12/31/ | Clinical | [facility] | Haleigh Turcios RN | Lumbar radiculopathy | | 2019 | Support | [facility] [place] | | | | | | [address] | | | | | | [place] | | | | | | [address] | | | | | | [phone] | | | +--------+ + + + [...] this encounter Last Filed Vital Signs + +---------+ + | Vital Sign | Reading | Time Taken | + +---------+ + | Blood Pressure | 123/82 | 12/31/2018 12:31 PM PDT | + +---------+ + | Pulse | 68 | 12/31/2018 12:31 PM PDT | + +---------+ + | Temperature | - | - | + +---------+ + | Respiratory Rate | - | - | + +---------+ + | Oxygen Saturation | - | - | + +---------+ + | Inhaled Oxygen | - | - | | Concentration | | | + +---------+ + | Weight | - | - | + +---------+ + | Height | - | - | + +---------+ + | Body Mass Index | - | - | + +---------+ + in this encounter Instructions Patient Instructions - Haleigh Turcios RN - 12/31/2018 12:45 PM PDTPreOp Instructions: -Discontinue aspirin, coumadin, heparin, etc 5-7 days before surgery -Discontinue any NSAIDs, such as ibuprofen and aleve 5-7 days before surgery. -Take prescribed medications as directed for pain management. -Don't bend, twist, or lift anything greater than 5-10 lbs. -Take pain medication and muscle relaxer 1 hour apart, taking together increases drowsiness which increases risk of falls. -Reminder to go to pre-op appt at hospital, and take consent form. If you have any questions or concerns feel free to call us at [phone]. in this encounter Progress Notes Haleigh Turcios RN - 12/31/2018 12:45 PM PDTPatient presents for pre-op visit re: their sche duled right L4-5 discectomy on 01/06/19. Patient reports pre-op symptoms of right leg pain an d weakness. Surgical informed consent to be signed by patient and Dr. Heart on the day of [facility]. Patient present for this appointment. Pre-op and post-op instructions reviewed to include: activity and restrictions, medications - stop NSAID's on 12/31/18, may resume 1 week post-op, diet - increase fluids and fiber intake, post-op wound care, when to call the doctor. Spine class book given to patient. Advised patient to take pain medication and muscle relaxer 1 h our apart, taking together increases drowsiness and risk of falls. Questions were addressed , patient verbalized understanding of given instruction. Patient was sent to [facility] for their scheduled pre-admit appointment, anesthesia consult, lab draw, EKG and chest xray. Orders entered per Dr. Heart's preference and hospital guidelines . Patient was given an appointment reminder for their first post-op visit on 01/16/19 @ 0840 a nd instructed to call in the interim with any problems or concerns.in this encounter Plan of Treatment +--------+ + + + + | Date | Type | Specialty | Care Team | Description | +--------+ + + + + | 01/16/ | Clinical | Neurosurgery | Hansel Treviño, | | | 2019 | Support | | [facility] [address] | | | | | | Dr [address], | | | | | | [place] [address] | | | | | | [phone] | | | | | | | | +--------+ + + + + as of this encounter Visit Diagnoses + + | Diagnosis | + + | Lumbar radiculopathy | + + | Thoracic or lumbosacral neuritis or radiculitis, unspecified | + +"
--- OUTSIDE RECORDS SUMMARY | ~2019-01-10 | XMS | Encounter Summary ---
Demographics + + + | Address | [address] | | | [place] [address] | + + + | Home Phone | | + + + | Preferred Language | Unknown | + + + | Marital Status | Single | + + + | Zoroastrian Affiliation | Unknown | + + + | Race | Unknown | + + + | Ethnic Group | Unknown | + + + Author + + + | Author | [facility] [employer] | + + + | Organization | [facility] [employer] | + + + | Address | Unknown | + + + | Phone | Unavailable | + + + Support + + +---------+ + | Name | Relationship | Address | Phone | + + +---------+ + | None,Provided | ECON | Unknown | | + + +---------+ + Care Team Providers + +------+ + | Care Power Lineman Technician Name | Role | Phone | + [...] | | | | | | | [address] Phone: | | | | | | | [phone] | | | | | | | Fax: | | | | | | | [phone] | +--------+--------+ + + + + Encounter Details +--------+ + + + + | Date | Type | Department | Care Team | Description | +--------+ + + + + | 01/06/ | Anesthesia | [facility] | [facility] | | | 2019 | Event | [facility] | MD Melissa [address] | | | | | Operating [address] | | | | | [address] | [place] [address] | | | | | [place] [address] | [phone] | | | | | [phone] | | | +--------+ + + + [...] | | 2019 | Support | | [facility] [address] | | | | | | Dr [address], | | | | | | [place] [address] | | | | | | [phone] | | | | | | | [...] 11:40 | | | | | Starting [facility] 01/06/19 at 1140, | | PDT [...]
--- OUTSIDE RECORDS SUMMARY | ~2019-01-10 | XMS | Clinical Summary ---
Demographics + + + | Address | [address] | | | [place] [address] | + + + | Home Phone | | + + + | Preferred Language | Unknown | + + + | Marital Status | Single | + + + | Anglican Affiliation | Unknown | + + + | Race | Unknown | + + + | Ethnic Group | Unknown | + + + Author + + + | Author | [facility] [employer] | + + + | Organization | [facility] [employer] [facility] | + + + | Address | Unknown | + + + | Phone | Unavailable | + + + Support + + +---------+ + | Name | Relationship | Address | Phone | + + +---------+ + | None,Provided | ECON | Unknown | | + + +---------+ + Care Team Providers + +------+ + | Care Manager Plant Name | Role | Phone | + +------+ + | None, Per Pt | PP | 000-0000 | + +------+ + Allergies + + + + + + | Active Allergy | Reactions | Severity | Noted | Comments | | | | | Date | | + + + + + + | Adhesive Tape | Rash | Medium | 01/07/20 | Ripped skin off | | | | | 19 | last time | + + + + + + | Codeine | Hives | High | 07/10/20 | | | | | | 18 | | + + + + + + | Gramineae Pollens | Other (See Comments) | High | 07/10/20 | | | | | | 18 | | + + + + + + | Ibuprofen | Hives | High | 07/10/20 | | | | | | 18 | | + + + + + + | Peanut Oil | Other (See Comments) | High | 07/10/20 | Reaction: "Bad | | | | | 18 | allergies" | + + + + + + Current Medications + + +--------+---------+------+------+-------+ | Prescription | Sig. | Disp. | Refills | Star | End | Statu | | | | | | t | Date | s | | | | | | Date | | | + + +--------+---------+------+------+-------+ | albuterol | | | 0 | 02/2 | | Activ | | (PROVENTIL | | | | 8/20 | | e | | HFA;VENTOLIN HFA) | | | | 19 | | | | 108 (90 Base) | | | | | | | | MCG/ACT inhaler | | | | | | | + + +--------+---------+------+------+-------+ | QVAR REDCLIVEALER 40 | | | 0 | 02/2 | | Activ | | MCG/ACT inhaler | | | | 7/20 | | e | | | | | | 19 | | | + + +--------+---------+------+------+-------+ | | Inhale 3 mLs into | | | | | Activ | | ipratropium-albutero | the lungs. | | | | | e | | l (DUO-NEB) 0.5-2.5 | | | | | | | | mg/3mL | | | | | | | + + +--------+---------+------+------+-------+ | diazePAM (VALIUM) | Take 1 tablet by | 30 | 0 | 03/1 | | Activ | | 5 MG | mouth every 6 (six) | tablet | | 8/20 | | e | | tabletIndications: | hours as needed for | | | 19 | | | | Herniated lumbar | Muscle spasms. | | | | | | | intervertebral disc | | | | | | | + + +--------+---------+------+------+-------+ | | Take 1-2 tablets by | 60 | 0 | 03/1 | | Activ | | HYDROcodone-acetamin | mouth every 6 (six) | tablet | | 8/20 | | e | | ophen (NORCO) | hours as needed for | | | 19 | | | | 7.5-325 MG per | Pain. | | | | | | | tablet | | | | | | | + + +--------+---------+------+------+-------+ Active Problems + + + | Problem | Noted Date | + + + | Numbness and tingling of right leg | 09/21/2018 | + + + | Lumbar radiculopathy | 09/20/2018 | + + + | Herniated lumbar intervertebral disc | 09/20/2018 | + + + | Degeneration of intervertebral disc of lumbar region | 09/20/2018 | + + + Encounters +--------+ + + + + | Date | Type | Specialty | Care Team | Description | +--------+ + + + + | 01/09/ | Telephone | | Mateus Heart MD | Post-op Problem | | 2018 | | | | (pain) | +--------+ + + + + | 01/06/ | Hospital | | Mateus Heart MD | Herniated lumbar | | 2018 | Encounter | | | intervertebral disc | | | | | | (Primary Dx); Lumbar | | | | | | disc herniation | | | | | | with radiculopathy; | | | | | | Lumbar radiculopathy | +--------+ + + + + | 01/06/ | Procedure | | | | | 2018 | Pass | | | | +--------+ + + + + | 01/06/ | Surgery | | Mateus Heart MD | LUMBAR - DISCECTOMY | | 2018 | | | | | +--------+ + + + + | 01/05/ | Anesthesia | | [facility] | | | 2019 | Event | | MD Melissa | | +--------+ + + + + | 12/31/ | Hospital | | Mateus Heart MD | | | 2019 | Encounter | | | | +--------+ + + + + | 12/31/ | Clinical | | Haleigh Turcios RN | Lumbar radiculopathy | | 2019 | Support | | | | +--------+ + + + + | 12/31/ | Orders Only | | Haleigh Turcios RN | | | 2018 | | | | | +--------+ + + + + | 12/27/ | Orders Only | | Haleigh Turcios RN | | | 2018 | | | | | +--------+ + + + + | 11/28/ | Telephone | | Mateus Heart MD | Procedure (Schedule) | | 2018 | | | | | +--------+ + + + + | 11/12/ | Telephone | | Mateus Heart MD | Other (Surgery prior | | 2018 | | | | authorization ) | +--------+ + + + + | 10/31/ | Office | | Mateus Heart MD | Lumbar disc | | 2018 | Visit | | | herniation with | | | | | | radiculopathy | | | | | | (Primary Dx); Lumbar | | | | | | radiculopathy | +--------+ + + + + from Last 3 Months Family History + +------+ + + | Relation | Name | Status | Comments | + +------+ + + | Father | | | | + +------+ + + | Mother | | Alive | | + +------+ + + Social History + +-------+ +--------+------+ [...] on file | | + + + Last Filed Vital Signs + + + [...] AM PDT | + + + + Plan of Treatment +--------+ + + + + | Date | Type | Specialty | Care Team | Description | +--------+ + + + + | 01/16/ | Clinical | | Hansel Treviño, | | | 2018 | Support | | MENTAL HEALTH PROGRAM SPECIALIST [address] | | | | | | [address], | | | | | | [place] [address] | | | | | | [phone] | | | | | | | | +--------+ + + + + + + + + + | Health Maintenance | Due Date | Last Done | Comments | + + + + + | Vaccine: | | | | | Dtap/Tdap/Td (1 - | 9 | | | | Tdap) | | | | + + + + + | Vaccine: Influenza | | | | | (#1) | 8 | | | + + + + + Procedures + +--------+ + + + | [...] no | | | CPAP | +---+--------+ + +--------+ +---+ + | PROTIME-INR | Timed | 12/31/2018 | | Results for this | | | | 2:00 PM | | procedure are in the | | | | PDT | | results section. | + +--------+ +---+ + | CBC W/AUTO DIFF | Timed | 12/31/2018 | | Results for this | | (REFLEX TO MANUAL) | | 2:00 PM | | procedure are in the | | | | PDT | | results section. | + +--------+ +---+ + | BASIC METABOLIC | Timed | 12/31/2018 | | Results for this | | PANEL | | 2:00 PM | | procedure are in the | | | | PDT | | results section. | + +--------+ +---+ + | APTT | Timed | 12/31/2018 | | Results for this | | | | 2:00 PM | | procedure are in the | | | | PDT | | results section. | + +--------+ +---+ + | MRSA BY PCR | Timed | 12/31/2018 | | Results for this | | | | 2:00 PM | | procedure are in the | | | | PDT | | results section. | + +--------+ +---+ + | CASE REQUEST | Routin | 10/31/2018 | | | | OPERATING ROOM | e | 9:54 PM | | | | | | PST | | | + +--------+ +---+ + from Last 3 Months Results X-ray C-arm fluoro up to 1 hour (01/06/2019 1:30 PM) + + + | Impressions | Performed At | + + + | Surgical localization at the level of L4-5. Signed by: Tim Holt | | Parmjit Sign Date/Time: 01/06/2019 3:42 PM | RADIOLOGY | + + + + + + | Narrative | Performed At | + + + | C-ARM <60 W/FLUORO CLINICAL INFORMATION: discectomy right L4-5 | [facility] | | FINDINGS: 2.7 seconds of fluoroscopy was utilized by Dr. Mateus Dumont RADIOLOGY | | Una during surgery. Surgical localization is noted at the level of | | | L4-5. Total number of images: 1. | | + + + + + | Procedure Note | + + | Kole, Yoandy Results In 01/06/2019 3:45 PM PDT C-ARM <60 W/FLUORO | | CLINICAL INFORMATION: | | discectomy right L4-5 | | FINDINGS: | | 2.7 seconds of fluoroscopy was utilized by Dr. Mateus Heart during | | surgery. | | Surgical localization is noted at the level of L4-5. | | Total number of images: 1. | | IMPRESSION: | | Surgical localization at the level of L4-5. | | Signed by: Parmjit Holt | | Sign Date/Time: 01/06/2019 3:42 PM | + + + + + + + | Performing | Address | City/State/[facility] | Phone Number | | Organization | | | | + + + + + | [facility] | [address] | [place] [address] | | + + + + + MRSA by PCR (12/31/2018 2:00 PM) + + + + + | Component | Value | Ref Range | Performed At | + + + + + | SOURCE | NARES(NOSE) | | [facility] | + + + + + | MRSA PCR | NEGATIVEComment: Testing | NEGATIVE | [facility] | | | performed at [facility];[address] | | | | | [address];[place] | | | | | [address] | | | + + + + + + + | Specimen | + + | Nasopharyngeal - | | Nares(Nose) | + + + + + + + | Performing | Address | City/State/Zipcode | Phone Number | | Organization | | | | + + + + + | [facility] | [address] | [place] [address] | | + + + + + aPTT (12/31/2018 2:00 PM) + + + + + | Component | Value | Ref Range | Performed At | + + + + + | APTT | 28Comment: Testing | 23 - 32 seconds | [facility] | | | performed at [facility];[address] | | [address];[place] | | | | | [address] | | | + + + + + + + | Specimen | + + | Blood | + + + + + + + | Performing | Address | City/State/Zipcode | Phone Number | | Organization | | | | + + + + + | [facility] | [address] | [place] [address] | | + + + + + Protime-INR (12/31/2018 2:00 PM) + + + + + | Component | Value | Ref Range | Performed At | + + + + + | INR | 1.0Comment: REFERENCE | | [facility] | | | RANGE:0.9 - | | | | | 1.2 NON-ANTICOAGULATE | | | | | D2.0 - 3.0 ALL OTHER | | | | | THERAPEUTIC | | | | | INDICATIONS2.5 - 3.5 | | | | | MECHANICAL HEART VALVES, | | | | | RECURRENT OR SYSTEMIC | | | | | EMBOLISMTesting | | | | | performed at [facility];[address] | | | | | [facility], [place] | | | | | [address] | | | + + + + + + + | Specimen | + + | Blood | + + + + + + + | Performing | Address | City/State/Zipcode | Phone Number | | Organization | | | | + + + + + | [facility] | [address] | [place] [address] | | + + + + + CBC w/auto diff (reflex to manual) (12/31/2018 2:00 PM) + + + + + | Component | Value | Ref Range | Performed At | + + + + + | WBC | 7.50 | 3.80 - 11.00 K/uL | [facility] | | | | | [facility] | + + + + + | RBC | 5.38 | 4.20 - 5.70 M/uL | [facility] | | | | | LAB[facility] | + + + + + | HGB | 16.4 | 13.2 - 17.0 g/dL | [facility] | | | | | LAB[facility] | + + + + + | HCT | 48.2 | 39.0 - 50.0 % | [facility] | | | | | LAB[facility] | + + + + + | MCV | 89.7 | 80.0 - 100.0 fl | [facility] | | | | | LAB[facility] | + + + + + | MCH | 30.5 | 27.0 - 34.0 pg | [facility] | | | | | LAB[facility] | + + + + + | MCHC | 34.0 | 32.0 - 35.5 g/dL | [facility] | | | | | LAB[facility] | + + + + + | RDW SD | 39.4 | 37 - 53 fl | [facility] | | | | | LAB[facility] | + + + + + | PLT | 230 | 150 - 400 K/uL | [facility] | | | | | LAB[facility]AT[facility] | + + + + + | MPV | 8.8 | fl | [facility] | | | | | LAB[facility] | + + + + + | DIFF TYPE | AUTOMATED | | [facility] | | | | | LAB[facility]AT[facility] | + + + + + | NEUTROPHILS | 54.52 | % | [facility] | | | | | LAB[facility] | + + + + + | LYMPHOCYTES | 37.28 | % | [facility] | | | | | LAB[facility] | + + + + + | MONOCYTES | 5.56 | % | [facility] | | | | | LAB[facility] | + + + + + | EOSINOPHILS | 1.87 | % | [facility] | | | | | LAB[facility] | + + + + + | BASOPHILS | 0.77 | % | [facility] | | | | | LAB[facility] | + + + + + | NEUTROPHILS ABS | 4.09 | 1.90 - 7.40 K/uL | [facility] | | | | | LAB[facility] | + + + + + | LYMPHOCYTES ABS | 2.80 | 1.00 - 3.90 K/uL | [facility] | | | | | [facility] | + + + + + | MONOCYTES ABS | 0.42 | 0.00 - 0.80 K/uL | [facility] | | | | | LAB[facility] | + + + + + | EOSINOPHILS ABS | 0.14 | 0.00 - 0.50 K/uL | [facility] | | | | | [facility] | + + + + + | BASOPHILS ABS | 0.06Comment: Testing | 0.00 - 0.10 K/uL | [facility] | | | performed at [facility], [address] | LABORATORY | | | [address], | | | | | [place] [address] | | | + + + + + + + | Specimen | + + | Blood | + + + + + + + | Performing | Address | City/State/Zipcode | Phone Number | | Organization | | | | + + + + + | [facility] | [address] | [place] [address] | [phone] | | LABORATORY | [address] | | | + + + + + Basic metabolic panel (12/31/2018 2:00 PM) + + + + + | Component | Value | Ref Range | Performed At | + + + + + | SODIUM | 139 | 135 - 145 mmol/L | [facility] | | | | | LAB[facility]AT[facility] | + + + + + | POTASSIUM | 3.7 | 3.5 - 4.9 mmol/L | [facility] | | | | | LABORATORY | + + + + + | CHLORIDE | 104 | 99 - 109 mmol/L | [facility] | | | | | LABORATORY | + + + + + | CO2 | 28 | 23 - 32 mmol/L | [facility] | | | | | LABORATORY | + + + + + | ANION GAP AGAP | 11 | 5 - 20 mmol/L | [facility] | | | | | LABORATORY | + + + + + | GLUCOSE | 76 | 65 - 99 mg/dL | [facility] | | | | | LABORATORY | + + + + + | BUN | 13 | 8 - 25 mg/dL | [facility] | | | | | LABORATORY | + + + + + | CREATININE | 0.8 | 0.70 - 1.30 mg/dL | [facility] | | | | | LABORATORY | + + + + + | BUN/CREAT | 16 | | [facility] | | | | | LABORATORY | + + + + + | CALCIUM | 8.9 | 8.5 - 10.5 mg/dL | [facility] | | | | | LABORATORY | + + + + + | EGFR | >60Comment: GFR <60: | >60 mL/min/1.73m2 | [facility] | | | CHRONIC KIDNEY DISEASE, | | LABORATORY | | | IF FOUND OVER A 3 MONTH | | | | | PERIOD.GFR <15: KIDNEY | | | | | FAILURE.FOR | | | | | AMERICANS, MULTIPLY THE | | | | | CALCULATED GFR BY | | | | | 1.210.This eGFR is | | | | | calculated using the | | | | | MDRD IDMS traceable | | | | | equation.Testing | | | | | performed at [facility], [facility] | | | | | [facility], | | | | | [place] [address] | | | + + + + + + + | Specimen | + + | Blood | + + + + + + + | Performing | Address | City/State/Zipcode | Phone Number | | Organization | | | | + + + + + | [facility] | [address] [place] [address] | [place] [address] | [phone] | | LABORATORY | [address] | | | + + + + + from Last 3 Months Insurance + +--------+ +------+-------+ + | Payer | Benefi | Subscriber | Type | Phone | Address | | | t Plan | ID | | | | | | / | | | | | | | Group | | | | | + +--------+ +------+-------+ + | MEDICAID | [employer] | [id number] | | | [address] | | | [place] | | | | [place] | | | [place] | | | | [address] | | | [employer] | | | | | + +--------+ [...] Self [birth year] Home: | [address] | | | al/Fam | | 1981 | [phone] | [place] [address] | | | [place] | | | [address] | | + +--------+ +--------+ + +
--- OUTSIDE RECORDS SUMMARY | ~2019-01-10 | XMS | Encounter Summary ---
Demographics + + + | Address | [address] | | | [place] [address] | + + + | Home Phone | | + + + | Preferred Language | Unknown | + + + | Marital Status | Single | + + + | Episcopalian Affiliation | Unknown | + + + | Race | Unknown | + + + | Ethnic Group | Unknown | + + + Author + + + | Author | [facility] [employer] | + + + | Organization | [facility] [employer] | + + + | Address | Unknown | + + + | Phone | Unavailable | + + + Support + + +---------+ + | Name | Relationship | Address | Phone | + + +---------+ + | None,Provided | ECON | Unknown | | + + +---------+ + Care Team Providers + +------+ + | Care Dividend Deposit Voucher Clerk Name | Role | Phone | + +------+ + | None, Per Pt | PCP | [id number] | + +------+ + Reason for Visit + + + | Reason | Comments | + + + | Post-op Problem | pain | + + + Encounter Details +--------+ + + + + | Date | Type | Department | Care Team | Description | +--------+ + + + + | 01/09/ | Telephone | [facility] | Mateus Heart MD | Post-op Problem | | 2019 | | [facility] | [address] | (pain) | | | | [address] | [place] [facility] | | | | | [place] | [address] | | | | | [address] | | | | | | [phone] | | | +--------+ + + + [...] | | 2018 | Support | | HYDROGEN TREATER [address] | | | | | | Dr [place], | | | | | | [place] [address] | | | | | | [phone] | | | | | | | | +--------+ + + + + as of this encounter Visit Diagnoses Not on filein this encounter"
--- OUTSIDE RECORDS SUMMARY | ~2019-01-10 | XMS | Encounter Summary ---
Demographics + + + | Address | [address] | | | [place] [address] | + + + | Home Phone | | + + + | Preferred Language | Unknown | + + + | Marital Status | Single | + + + | Yarsani Affiliation | Unknown | + + + | Race | Unknown | + + + | Ethnic Group | Unknown | + + + Author + + + | Author | [facility] [employer] | + + + | Organization | [facility] [employer] [facility] | + + + | Address | Unknown | + + + | Phone | Unavailable | + + + Support + + +---------+ + | Name | Relationship | Address | Phone | + + +---------+ + | None,Provided | ECON | Unknown | | + + +---------+ + Care Team Providers + +------+ + | Care Plumber Assistant Name | Role | Phone | + [...] | | | | | | | [address] Phone: | | | | | | | [phone] | | | | | | | Fax: | | | | | | | [phone] | +--------+--------+ + + + + Encounter Details +--------+---------+ + + + | Date | Type | Department | Care Team | Description | +--------+---------+ + + + | 01/06/ | Surgery | [facility] | Jazzy Heart MD | LUMBAR - DISCECTOMY | | 2019 | | [facility] | [address] | | | | | Operating Room [address] [place], [place] | | | | | [address] | [address] | | | | | [place] [address] | | | | | | [phone] | | | +--------+---------+ + + + [...] position which is comfortable for you. No quality control microbiologist, yard work, or recreational activities unless otherwise [...] Jazzy Heart MD - 01/06/2019 2:38 PM [facility] Neurological Surgery Progress Note Hospital Day: [...] preop packet and discharge papers). Call office [phone] if any questions or problems or return to [facility]. JAZZY HEART MD 01/06/2019 in this encounter Plan of Treatment +--------+ + + + + | Date | Type | Specialty | Care Team | Description | +--------+ + + + + | 01/16/ | Clinical | Neurosurgery | Hansel Treviño, | | | 2018 | Support | | RETAIL EQUIPMENT ASSOCIATE [address] | | | | | | [address], | | | | | | [place] [address] | | | | | | [phone] | | | | | | | [...] | + + + + + | [facility] | [address] | [place] [address] | | + + + + + [...] | 6 mLs | | | | [id number] injection PRN, | | 9 12:05 | | | | | Starting [facility] 01/06/19 at 1205, | | [...]
--- OUTSIDE RECORDS SUMMARY | ~2019-01-10 | XMS | Encounter Summary ---
Demographics + + + | Address | [address] | | | [place] [address] | + + + | Home Phone [...] + + + | Author | [facility] [employer] | + + + | Organization | [facility] [employer] [facility] | + + + | Address | Unknown | + + + | Phone | Unavailable | + + + Support + + +---------+ + | Name | Relationship | Address | Phone | + + +---------+ + | None,Provided | ECON | Unknown | | + + +---------+ + Care Team Providers + +------+ + | Care Fluorescent Lamp Replacer Name | Role | Phone | + +------+ + | None, Per Pt | PCP | [id number] | + +------+ + Encounter Details +--------+ + + + + | Date | Type | Department | Care Team | Description | +--------+ + + + + | 12/31/ | Hospital | [facility] | Mateus Heart MD | | | 2019 | Encounter | [facility] | [address] | | | | | Preadmission | Drive [place], [place] | | | | | Services [address] | [phone] | | | | | [place], [place] | | | | | | [address] | | | +--------+ + + + [...] + + + | Blood Pressure | 124/78 | 12/31/2018 1:45 PM PDT | + + + + | Pulse | 65 | 12/31/2018 1:45 PM PDT | + + + + | Temperature | - | - | + + + + | Respiratory Rate | - | - | + + + + | Oxygen Saturation | 98% | 12/31/2018 1:45 PM PDT | + + + + | Inhaled Oxygen | - | - | | Concentration | | | + + + + | Weight | 102.6 kg (226 lb 3.1 | 12/31/2018 1:45 PM PDT | | | oz) | | + + + + | Height | 170.2 cm (5' 7") | 12/31/2018 1:45 PM PDT | + + + + | Body Mass Index | 35.43 | 12/31/2018 1:45 PM PDT | + + + + in this encounter Discharge Instructions Lindy Bailey RN - 12/31/2018Formatting of this note may be different from the original. POST-OPERATIVE INSTRUCTIONS FOR SPINE SURGERY PATIENTS YOUR INCISION: The dressing can be removed at home if not done in the hospital before you leave. Some stefan inage can be normal for several days, but you should call if there is persistent or unusual drainage, swelling, or redness which develops. If you have syd or sutures, these will be removed between 10-21 days after surgery at y our first post-operative appointment. If your incision has steri-strips over it, these will come off on their own in the first 1- 2 weeks. If your incision was closed with Dermabond, this waterproof covering will peel off on its o wn in the first 1-2 weeks. DO NOT apply creams, lotions, or ointments to the incision unless instructed to do so. Krish p the incision clean and dry. You may shower at home and pat the incision dry, but try to avoid having the water run dire ctly on the incision. Do not soak the incision under water such as in a pool, hot tub, or b ath. You can usually resume the pool or bath about 3 weeks after the surgery if there are n o wound healing problems. Apply ice to the surgical site 20 minutes on and 10-20 minutes off to reduce pain, swelling , and inflammation. ACTIVITY: Do not lift anything more than 10 pounds (approximately one gallon of milk). You will be g iven instructions about gradually increasing your lifting at your follow-up appointment. Walking can be done as much as tolerated, but start with short distances on firm, level sarai faces. Avoid bending, twisting, pushing, pulling, overhead lifting, or prolonged sitting. You may sleep in any position which is comfortable to you. No form setter steel forms, yard work, or recreational activities unless otherwise instructed. You may resume driving after your first post-operative visit (10-14 days after the surgery) . You should not be driving or operating machinery if taking pain medication or muscle rela xers. Your return to work will depend on your occupation and will be discussed individually with each patient. DIET: Resume your regular diet. Remember pain medications cause constipation so use an over-the- counter stool softener (i.e. Colace, Senokot) and increase your water and fiber intake. Take a laxative to resolve constipation as soon as possible. MEDICATIONS: You may resume your home medications. You may resume your aspirin after one week. If your Coumadin or Plavix was stopped before surgery, restarting this needs to be discussed with myrna fuentes physician. Take your pain medication and muscle relaxers as needed. You may wean off of them as your pain decreases. Medication refills can be requested from your pharmacy. Please reque st these at least 2 days before you run out. The pharmacy will contact our office to approv e the refill. Medications will not be refilled on weekends or after office hours. COLLARS & BRACES: If you were provided a collar for your neck or a brace for your back, this needs to be worn at all times when up and around unless otherwise instructed. It is not necessary to wear t hese while lying down. These may be removed for sleep, brief trips to the bathroom, and to shower. WHEN TO CALL THE DOCTOR: o If you have a fever over 101.0 degrees, after taking Tylenol which does not reduce the fe maxwell within 24 hours o If your incision has unusual drainage, odor, swelling, redness, or is hot to the touch o Inability to urinate o Constipation which does not resolve after a few days even after taking a laxative o If you have any new pain, numbness, or weakness in your arms or legs Mateus Heart M.D. & Lor Marin M.D. [address] [place] [address] Outpatient Prescriptions Marked as Taking for the 12/31/18 encounter (Hospital Encounter) [facility] ROOM 2 Medication Sig INSTRUCTIONS albuterol (PROVENTIL HFA;VENTOLIN HFA) 108 (90 Base) MCG/ACT inhaler TAKE day of proce dure ipratropium-albuterol (DUO-NEB) 0.5-2.5 mg/3mL Inhale 3 mLs into the lungs. TAKE day of procedure QVAR REDIHALER 40 MCG/ACT inhaler TAKE day of procedure in this encounter Medications at Time of [...] tablet by | 30 | 0 | 20 | | | 5 MG | mouth [...] | + + +--------+---------+ + + | TOM LAWRENCE 40 | | | 0 | 12/18/19 | | | MCG/ACT inhaler | | | | 19 | | + + +--------+---------+ + + as of this encounter Plan of Treatment +--------+ + + + + | Date | Type | Specialty | Care Team | Description | +--------+ + + + + | 01/16/ | Clinical | Neurosurgery | Hansel Treviño, | | | 2018 | Support | | HEAD STRENGTH AND CONDITIONING COACH [address] | | | | | | Dr [place], | | | | | | [place] [address] | | | | | | [phone] | | | | | | | | +--------+ + + + + as of this encounter Procedures + +--------+ + + + | Procedure Name | Priori | Date/Time | Associated Diagnosis | Comments | | | ty | | | | + +--------+ + + + | MRSA BY PCR | Timed | 12/31/2018 | | Results for this | | | | 2:00 PM | | procedure are in the | | | | PDT | | results section. | + +--------+ + + + | APTT | Timed | 12/31/2018 | | Results for this | | | | 2:00 PM | | procedure are in the | | | | PDT | | results section. | + +--------+ + + + | PROTIME-INR | Timed | 12/31/2018 | | Results for this | | | | 2:00 PM | | procedure are in the | | | | PDT | | results section. | + +--------+ + + + | CBC W/AUTO DIFF | Timed | 12/31/2018 | | Results for this | | (REFLEX TO MANUAL) | | 2:00 PM | | procedure are in the | | | | PDT | | results section. | + +--------+ + + + | BASIC METABOLIC | Timed | 12/31/2018 | | Results for this | | PANEL | | 2:00 PM | | procedure are in the | | | | PDT | | results section. | + +--------+ + + + in this encounter Results Protime-INR (12/31/2018 2:00 PM) + + + + + | Component | Value | Ref Range | Performed At | + + + + + | INR | 1.0Comment: REFERENCE | | [facility] | | | RANGE:0.9 - [...] | | | | | performed at [facility];[address] | | | | | [address];[place], [place] | | | | | [address] | | | + + + + + + + | Specimen | + + | Blood | + + + + + + + | Performing | Address | City/State/Zipcode | Phone Number | | Organization | | | | + + + + + | [facility] | [address] | [place] [address] | | + + + + + MRSA by PCR (12/31/2018 2:00 PM) + + + + + | Component | Value | Ref Range | Performed At | + + + + + | SOURCE | NARES(NOSE) | | [facility] | + + + + + | MRSA PCR | NEGATIVEComment: Testing | NEGATIVE | [facility] | | | performed at [facility];[address] | | | | | [address];[place] | | | | | [address] | | | + + + + + + + | Specimen | + + | Nasopharyngeal - | | Nares(Nose) | + + + + + + + | Performing | Address | City/State/Zipcode | Phone Number | | Organization | | | | + + + + + | [facility] | [address] | [place] [address] | | + + + + + [...] | [facility] | | | performed at [facility], [address] | | LABORATORY | | | [address], | | | | | [place] [address] | | | + + + + + + + | Specimen | + + | Blood | + + + + + + + | Performing | Address | City/State/Zipcode | Phone Number | | Organization | | | | + + + + + | [facility] | [address] | [place] [address] | [phone] | | LABORATORY | [address]vd[address] | | [...] >60Comment: GFR <60: | >60 mL/min/1.73m2 | [facility] | | | CHRONIC KIDNEY DISEASE, | [...] | | | | | performed at [facility], [address] | | | | | [facility], | | | | | [place] [address] | | | + + + + + + + | Specimen | + + | Blood | + + + + + + + | Performing | Address | City/State/Zipcode | Phone Number | | Organization | | | | + + + + + | [facility] | [address] | [place] [address] | [phone] | | LABORATORY | [place]. | | | + + + + + aPTT (12/31/2018 2:00 PM) + + + + + | Component | Value | Ref Range | Performed At | + + + + + | APTT | 28Comment: Testing | 23 - 32 seconds | [facility] | | | performed at [facility];[address] | [address];[place], [place] | | | | | [address] | | | + + + + + + + | Specimen | + + | Blood | + + + + + + + | Performing | Address | City/State/Zipcode | Phone Number | | Organization | | | | + + + + + | [facility] | [address] | [place] [address] | | + + + + + in this encounter Visit Diagnoses Not on filein this encounter
--- OUTSIDE RECORDS SUMMARY | ~2019-01-10 | XMS | Encounter Summary ---
Demographics + + + | Address | [address] | | | [place] [address] | + + + | Home Phone | | + + + | Preferred Language | Unknown | + + + | Marital Status | Single | + + + | Yazdanism Affiliation | Unknown | + + + | Race | Unknown | + + + | Ethnic Group | Unknown | + + + Author + + + | Author | [facility] [employer] | + + + | Organization | [facility] [employer] [facility] | + + + | Address | Unknown | + + + | Phone | Unavailable | + + + Support + + +---------+ + | Name | Relationship | Address | Phone | + + +---------+ + | None,Provided | ECON | Unknown | | + + +---------+ + Care Team Providers + +------+ + | Care Ways Operator Name | Role | Phone | + +------+ + | None, Per Pt | PCP | [id number] | + +------+ + Encounter Details +--------+ + + + + | Date | Type | Department | Care Team | Description | +--------+ + + + + | 12/31/ | Hospital | [facility] | Mateus Heart MD | | | 2019 | Encounter | [facility] | [address] | | | | | Preadmission | Drive [place], [place] | | | | | Services [address] | [phone] | | | | | [place], [place] | | | | | | [...] position which is comfortable to you. No first crusher, yard work, or recreational activities unless otherwise [...] Tylenol which does not reduce the fe maxewll within 24 hours o If your incision has unusual drainage, odor, swelling, redness, or is hot to the touch o Inability to urinate o Constipation which does not resolve after a few days even after taking a laxative o If you have any new pain, numbness, or weakness in your arms or legs Mateus Heart M.D. & Lor Marin M.D. [address] [place] [address] Outpatient Prescriptions Marked as Taking for the 12/31/18 encounter (Hospital Encounter) [facility] ROOM 2 Medication Sig INSTRUCTIONS albuterol (PROVENTIL [...] | | 2018 | Support | | AIR SUPPORT OPERATIONS OPERATOR [address] | | | | | | Dr [place], | | | | | | [place] [address] | | | | | | [phone] | | | | | | | [...] | INR | 1.0Comment: REFERENCE | | [facility] | | | RANGE:0.9 - | [...] | | | | | performed at [place];[address] | | | | | [address];[place], [place] | | | | | [address] | | | + + + + + + + | Specimen | + + | Blood | + + + + + + + | Performing | Address | City/State/Zipcode | Phone Number | | Organization | | | | + + + + + | [facility] | [address] | [place] [address] | | + + + + + MRSA by PCR (12/31/2018 2:00 PM) + + + + + | Component | Value | Ref Range | Performed At | + + + + + | SOURCE | NARES(NOSE) | | [facility] | + + + + + | MRSA PCR | NEGATIVEComment: Testing | NEGATIVE | [facility] | | | performed at [place];[address] | | | | | [address];[place] | | | | | [address] | | | + + + + + + + | Specimen | + + | Nasopharyngeal - | | Nares(Nose) | + + + + + + + | Performing | Address | City/State/Zipcode | Phone Number | | Organization | | | | + + + + + | [facility] | [address] | [place] [address] | | + + + + + [...] | [facility] | | | performed at [facility], [address] | | LABORATORY | | | [address], | | | | | [place] [address] | | | + + + + + + + | Specimen | + + | Blood | + + + + + + + | Performing | Address | City/State/Zipcode | Phone Number | | Organization | | | | + + + + + | [facility] | [address] | [place] [address] | [phone] | | LABORATORY | [address] | | [...] | | | | | performed at [facility], [address] | | | | | [facility], | | | | | [place] [address] | | | + + + + + + + | Specimen | + + | Blood | + + + + + + + | Performing | Address | City/State/Zipcode | Phone Number | | Organization | | | | + + + + + | [facility] | [address] | [place] [address] | [phone] | | LABORATORY | [place]. | | | + + + + + aPTT (12/31/2018 2:00 PM) + + + + + | Component | Value | Ref Range | Performed At | + + + + + | APTT | 28Comment: Testing | 23 - 32 seconds | [facility] | | | performed at [place];[address];[place], [place] | | | | | [address] | | | + + + + + + + | Specimen | + + | Blood | + + + + + + + | Performing | Address | City/State/Zipcode | Phone Number | | Organization | | | | + + + + + | [facility] | [address] | [place] [address] | | + + + + + in this encounter Visit Diagnoses Not on filein this encounter
--- OUTSIDE RECORDS SUMMARY | ~2019-01-10 | XMS | Clinical Summary ---
Demographics + + + | Address | [address] | | | [place] [address] | + + + | Home Phone | | + + + | Preferred Language | Unknown | + + + | Marital Status | Unknown | + + + | Nondenominational Affiliation | Unknown | + + + | Race | Unknown | + + + | Ethnic Group | Unknown | + + + Author + + + | Author | [facility] | | | and [place] | + + + | Organization | [facility] | | | and [place] | + + + | Address | Unknown | + + + | Phone | Unavailable | + + + Care Team Providers + +------+ + | Care Senior Mechanical Engineer Name | Role | Phone | + +------+ + | Laci Barry | PP | | + +------+ + Allergies + + + + + + | Active Allergy | Reactions | Severity | Noted | Comments | | | | | Date | | + + + + + + | Codeine | Hives | | 07/10/20 | | | | | | 18 | | + + + + + + | Gramineae Pollens | Other (See Comments) | High | 07/10/20 | | | | | | 18 | | + + + + + + | Ibuprofen | Hives | Low | 07/10/20 | | | | | | 18 | | + + + + + + | Peanut Oil | Other (See Comments) | High | 07/10/20 | Reaction: "Bad | | | | | 18 | allergies" | + + + + + + Current Medications + + +-------+---------+------+------+-------+ | Prescription | Sig. | Disp. | Refills | Star | End | Statu | | | | | | t | Date | s | | | | | | Date | | | + + +-------+---------+------+------+-------+ | | Take 3 mLs by | | | | | Activ | | albuterol-ipratropiu | nebulization. | | | | | e | | m 2.5-0.5 mg/3 mL | | | | | | | | SOLN | | | | | | | + + +-------+---------+------+------+-------+ | methylPREDNISolone | Take 4 mg by mouth | | | | | Activ | | (MEDROL) 4 mg | Daily. | | | | | e | | tablet | | | | | | | + + +-------+---------+------+------+-------+ | beclomethasone | Inhale 2 puffs into | | | | | Activ | | (QVAR) 40 mcg/puff | the lungs 2 times | | | | | e | | inhaler | daily. | | | | | | + + +-------+---------+------+------+-------+ | albuterol | Inhale 2 puffs into | | | | | Activ | | (VENTOLIN HFA) 90 | the lungs every 6 | | | | | e | | mcg/puff inhaler | hours as needed for | | | | | | | | Wheezing. | | | | | | + + +-------+---------+------+------+-------+ Active Problems Not on file Social History + + + +--------+ + | Tobacco Use | Types | Packs/Day | Years | Date | | | | | Used | | + + + +--------+ + | Former Smoker | Cigarettes | | | Quit: 10/22/2002 | + + + +--------+ + + + + | Sex Assigned at | Date Recorded | | | | + + + | Not on file | | + + + Last Filed Vital Signs + + + + | Vital Sign | Reading | Time Taken | + + + + | Blood Pressure | - | - | + + + + | Pulse | - | - | + + + + | Temperature | - | - | + + + + | Respiratory Rate | - | - | + + + + | Oxygen Saturation | - | - | + + + + | Inhaled Oxygen | - | - | | Concentration | | | + + + + | Weight | 103.8 kg (228 lb | 07/10/2018 0952 PDT | | | 12.8 oz) | | + + + + | Height | 170.2 cm (5' 7") | 07/10/2018951 PDT | + + + + | Body Mass Index | 35.84 | 07/10/2018951 PDT | + + + + Plan of Treatment + [...] filefrom Last 3 Months Insurance + +--------+ +--------+ +---------+ | Payer | Benefi | Subscriber | Type | Phone | Address | | | t Plan | ID | | | | | | / | | | | | | | Group | | | | | + +--------+ +--------+ +---------+ | [employer] | MODA | [id number] | Medica | [phone]- | | | MEDICAID HMO | HEALTH | | id | 9821 | | | | MDCD | | | | | | | [place]MO [place] | | | | | + +--------+ +--------+ +---------+ + +--------+ +--------+ + + | Guarantor Name | Accoun | Relation to | Date | Phone | Billing Address | | | t Type | Patient | of | | | | | | | | | | + +--------+ +--------+ + + | NERI PHOENIX | Person | Self [birth year] Home: | [address] | | | [place] | | 1980 | [phone] | [place] [address] | | | [place] | | | [phone] | | + +--------+ +--------+ + +
--- OUTSIDE RECORDS SUMMARY | ~2019-01-10 | XMS | Clinical Summary ---
Demographics + + + | Address | [address] | | | [place] [address] | + + + | Home Phone | | + + + | Preferred Language | Unknown | + + + | Marital Status | Single | + + + | Latter-Day Affiliation | Unknown | + + + | Race | Unknown | + + + | Ethnic Group | Unknown | + + + Author + + + | Author | [facility] [employer] | + + + | Organization | [facility] [employer] [facility] | + + + | Address | Unknown | + + + | Phone | Unavailable | + + + Support + + +---------+ + | Name | Relationship | Address | Phone | + + +---------+ + | None,Provided | ECON | Unknown | | + + +---------+ + Care Team Providers + +------+ + | Care Border Guard Name | Role | Phone | + [...] | | 2018 | Support | | KILN FIRER HELPER [address] | | | | | | [address], | | | | | | [place] [address] | | | | | | [phone] | | | | | | | [...] + + | Performing | Address | City/State/[facility] | Phone Number | | Organization | | | | + + + + + | [facility] | [address] | [place] [address] | | + + + + + MRSA by PCR (12/31/2018 2:00 PM) + + + + + | Component | Value | Ref Range | Performed At | + + + + + | SOURCE | NARES(NOSE) | | [facility] | + + + + + | MRSA PCR | NEGATIVEComment: Testing | NEGATIVE | [facility] | | | performed at [facility];[address] | | | | | [address];[place] | | | | | [address] | | | + + + + + + + | Specimen | + + | Nasopharyngeal - | | Nares(Nose) | + + + + + + + | Performing | Address | City/State/Zipcode | Phone Number | | Organization | | | | + + + + + | [facility] | [address] | [place] [address] | | + + + + + aPTT (12/31/2018 2:00 PM) + + + + + | Component | Value | Ref Range | Performed At | + + + + + | APTT | 28Comment: Testing | 23 - 32 seconds | [facility] | | | performed at [facility];[address];[place] | | | | | [address] | | | + + + + + + + | Specimen | + + | Blood | + + + + + + + | Performing | Address | City/State/Zipcode | Phone Number | | Organization | | | | + + + + + | [facility] | [address] | [place] [address] | | + + + + + Protime-INR (12/31/2018 2:00 PM) + + + + + | Component | Value | Ref Range | Performed At | + + + + + | INR | 1.0Comment: REFERENCE | | [facility] | | | RANGE:0.9 - [...] | | | | | performed at [facility];[address] | | | | | [facility];[place], [place] | | | | | [address] | | | + + + + + + + | Specimen | + + | Blood | + + + + + + + | Performing | Address | City/State/Zipcode | Phone Number | | Organization | | | | + + + + + | [facility] | [address] [address] | [place] [address] | | + + + + + [...] | [facility] | | | performed at [facility], [address] | | LABORATORY | | | [address], | | | | | [place] [address] | | | + + + + + + + | Specimen | + + | Blood | + + + + + + + | Performing | Address | City/State/Zipcode | Phone Number | | Organization | | | | + + + + + | [facility] | [address] [facility] | [place] [address] | [phone] | | LABORATORY | [address] | | [...] >60Comment: GFR <60: | >60 mL/min/1.73m2 | [facility] | | | CHRONIC KIDNEY DISEASE, [...] | | | | | performed at [facility], [facility] | | | | | [facility], | | | | | [place] [address] | | | + + + + + + + | Specimen | + + | Blood | + + + + + + + | Performing | Address | City/State/Zipcode | Phone Number | | Organization | | | | + + + + + | [facility] | [address] [place] [address] | [place] [address] | [phone] | | LABORATORY | [address] | | [...] +------+-------+ + | MEDICAID | EASTER | [id number] | | | [address] | | | [place] | | | | [place] | | | [place] | | | | [phone] | | | [employer]ER | | | | | + +--------+ [...] Self | [birth year] | Home: | [address] | | | al/Fam | | 1981 | [phone] | [place] [address] | | | [place] | | | [address] | | + +--------+ +--------+ + +
--- OUTSIDE RECORDS SUMMARY | ~2019-01-10 | XMS | Encounter Summary ---
Demographics + + + | Address | [address] | | | [place] [address] | + + + | Home Phone | | + + + | Preferred Language | Unknown | + + + | Marital Status | Single | + + + | Alevism Affiliation | Unknown | + + + | Race | Unknown | + + + | Ethnic Group | Unknown | + + + Author + + + | Author | [facility] [employer] [facility] | + + + | Organization | [facility] | + + + | Address | Unknown | + + + | Phone | Unavailable | + + + Support + + +---------+ + | Name | Relationship | Address | Phone | + + +---------+ + | None,Provided | ECON | Unknown | | + + +---------+ + Care Team Providers + +------+ + | Care Manufacturing Millwright Name | Role | Phone | + [...] | | | | | | | [address] Phone: | | | | | | | [phone] | | | | | | | Fax: | | | | | | | [phone] | +--------+--------+ + + + + Encounter Details +--------+ + + + + | Date | Type | Department | Care Team | Description | +--------+ + + + + | 01/06/ | Hospital | [facility] | Jazzy Heart MD | Herniated lumbar | | 2019 | [facility] | [address] | intervertebral disc | | | | [address] | Drive [place], [place] | (Primary Dx); Lumbar | | | | [place] [address] | [address] | disc herniation | | | | [phone] | | with radiculopathy; | | | [...] position which is comfortable for you. No flavoring maker, yard work, or recreational activities unless otherwise [...] Jazzy Heart MD - 01/06/2019 2:38 PM [facility]: Neurological Surgery Progress Note Hospital Day: [...] preop packet and discharge papers). Call office [phone] if any questions or problems or return to [facility]. JAZZY HEART MD 01/06/2019 in this encounter Plan of Treatment +--------+ + + + + | Date | Type | Specialty | Care Team | Description | +--------+ + + + + | 01/16/ | Clinical | Neurosurgery | Hansel Treviño, | | | 2019 | Support | | SHOE TRIMMER [address] | | | | | | Dr [place], | | | | | | [place] [address] | | | | | | [phone] | | | | | | | [...] | + + + + + | [facility] | [address] | [place] [address] | | + + + + + [...]
--- OUTSIDE RECORDS SUMMARY | ~2019-01-10 | XMS | Clinical Summary ---
Demographics + + + | Address | [address] | | | [place] [address] | + + + | Home Phone | | + + + | Preferred Language | Unknown | + + + | Marital Status | Unknown | + + + | Mosque Affiliation | Unknown | + + + | Race | Unknown | + + + | Ethnic Group | Unknown | + + + Author + + + | Author | [facility] | | | and Sanjayana | + + + | Organization | [facility] | | | and Sanjayana | + + + | Address | Unknown | + + + | Phone | Unavailable | + + + Care Team Providers + +------+ + | Care Jewel Bearing Broacher Name | Role | Phone | + [...] | [employer] | [facility] | [id number] | [employer] | [phone] | | | [...] Self | [birth year] | Home: | [address] | | | [place] | | 1980 | [phone] | [place] [address] | | | [place] | | | [phone] | | + +--------+ +--------+ + +
--- OUTSIDE RECORDS SUMMARY | ~2019-01-10 | XMS | Encounter Summary ---
Demographics + + + | Address | [address] | | | [place] [address] | + + + | Home Phone | | + + + | Preferred Language | Unknown | + + + | Marital Status | Single | + + + | Presybeterian Affiliation | Unknown | + + + | Race | Unknown | + + + | Ethnic Group | Unknown | + + + Author + + + | Author | [facility] [employer] | + + + | Organization | [facility] | + + + | Address | Unknown | + + + | Phone | Unavailable | + + + Support + + +---------+ + | Name | Relationship | Address | Phone | + + +---------+ + | None,Provided | ECON | Unknown | | + + +---------+ + Care Team Providers + +------+ + | Care Centrex Radio Operator Name | Role | Phone | + +------+ + PCP | Unavailable | + +------+ + Reason for Visit +--------+ + | Reason | Comments | +--------+ + | Other | Surgery prior authorization | +--------+ + Encounter Details +--------+ + + + + | Date | Type | Department | Care Team | Description | +--------+ + + + + | 11/12/ | Telephone | [facility] | Mateus Heart MD | Other (Surgery prior | | 2019 | | [facility] | [address] | authorization ) | | | | [address] | [place] [facility] | | | | | [place] | [address] | | | | | [address] | | | | | | [phone] | | | +--------+ + + + [...] | | 2019 | Support | | TITLE I ASSISTANT [address] | | | | | | Dr [place], | | | | | | [place] [address] | | | | | | [phone] | | | | | | | | +--------+ + + + + as of this encounter Visit Diagnoses Not on filein this encounter"
--- OUTSIDE RECORDS SUMMARY | ~2019-01-10 | XMS | Encounter Summary ---
Demographics + + + | Address | [address] | | | [place] [address] | + + + | Home Phone | | + + + | Preferred Language | Unknown | + + + | Marital Status | Single | + + + | Advent Affiliation | Unknown | + + + | Race | Unknown | + + + | Ethnic Group | Unknown | + + + Author + + + | Author | [facility] [employer] [facility] | + + + | Organization | [facility] | + + + | Address | Unknown | + + + | Phone | Unavailable | + + + Support + + +---------+ + | Name | Relationship | Address | Phone | + + +---------+ + | None,Provided | ECON | Unknown | | + + +---------+ + Care Team Providers + +------+ + | Care Javascript Application Developer Name | Role | Phone | + +------+ + | None, Per Pt | PCP | 000-0000 | + +------+ + Encounter Details +--------+ + + + + | Date | Type | Department | Care Team | Description | +--------+ + + + + | 12/27/ | Orders Only | [facility] | Haleigh Turcios RN | | | 2018 | | [facility] [place] | | | | | | [address] | | | | | | [place] | | | | | | [address] | | | | | | [phone] | | | +--------+ + + + [...] | | 2019 | Support | | [place]us[place] | | | | | | Dr [place], | | | | | | [place] [address] | | | | | | [phone] | | | | | | | | +--------+ + + + + as of this encounter Visit Diagnoses Not on filein this encounter"
--- OUTSIDE RECORDS SUMMARY | ~2019-01-10 | XMS | Encounter Summary ---
Demographics + + + | Address | [address] | | | [place] [address] | + + + | Home Phone | | + + + | Preferred Language | Unknown | + + + | Marital Status | Single | + + + | Rastafarian Affiliation | Unknown | + + + | Race | Unknown | + + + | Ethnic Group | Unknown | + + + Author + + + | Author | [facility] [employer] [facility] | + + + | Organization | [facility] | + + + | Address | Unknown | + + + | Phone | Unavailable | + + + Support + + +---------+ + | Name | Relationship | Address | Phone | + + +---------+ + | None,Provided | ECON | Unknown | | + + +---------+ + Care Team Providers + +------+ + | Care Cycle Liaison Name | Role | Phone | + [...] | | [address] | [place] [facility] | | | | | [place] | [address] | | | | | [address] | | | | | | [phone] | | | +--------+ + + + [...] | | 2019 | Support | | FERRYBOAT OPERATOR HELPER [address] | | | | | | Dr [place], | | | | | | [place] [address] | | | | | | [phone] | | | | | | | | +--------+ + + + + as of this encounter Visit Diagnoses Not on filein this encounter"
--- OUTSIDE RECORDS SUMMARY | ~2019-01-10 | XMS | Encounter Summary ---
Demographics + + + | Address | [address] | | | [place] [address] | + + + | Home Phone | | + + + | Preferred Language | Unknown | + + + | Marital Status | Single | + + + | Methodist Affiliation | Unknown | + + + | Race | Unknown | + + + | Ethnic Group | Unknown | + + + Author + + + | Author | [facility] [employer] | + + + | Organization | [facility] | + + + | Address | Unknown | + + + | Phone | Unavailable | + + + Support + + +---------+ + | Name | Relationship | Address | Phone | + + +---------+ + | None,Provided | ECON | Unknown | | + + +---------+ + Care Team Providers + +------+ + | Care Mud Logger Name | Role | Phone | + +------+ + | None, Per Pt | PCP | 000-0000 | + +------+ + Encounter Details +--------+ + + + + | Date | Type | Department | Care Team | Description | +--------+ + + + + | 12/31/ | Clinical | [facility] | Haleigh Turcios RN | Lumbar radiculopathy | | 2019 | Support | [facility] [place] | | | | | | [address] | | | | | | [place] | | | | | | [address] | | | | | | [phone] | | | +--------+ + + + [...] concerns feel free to call us at [phone]. in this encounter Progress Notes Haleigh Turcios RN - 12/31/2018 12:45 PM PDTPatient presents for pre-op visit re: their sche duled right L4-5 discectomy on 01/06/19. Patient reports pre-op symptoms of right leg pain an d weakness. Surgical informed consent to be signed by patient and Dr. Heart on the day of [facility]. Patient present for this appointment. Pre-op and [...] of given instruction. Patient was sent to [facility] for their scheduled pre-admit appointment, anesthesia [...] | | 2019 | Support | | [facility] [address] | | | | | | Dr [place], | | | | | | [place] [address] | | | | | | [phone] | | | | | | | | +--------+ + + + + as of this encounter Visit Diagnoses + + | Diagnosis | + + | Lumbar radiculopathy | + + | Thoracic or lumbosacral neuritis or radiculitis, unspecified | + +"
--- OUTSIDE RECORDS SUMMARY | ~2019-01-10 | XMS | Encounter Summary ---
Demographics + + + | Address | [address] | | | [place] [address] | + + + | Home Phone | | + + + | Preferred Language | Unknown | + + + | Marital Status | Single | + + + | Spiritism Affiliation | Unknown | + + + | Race | Unknown | + + + | Ethnic Group | Unknown | + + + Author + + + | Author | [facility] [employer] [facility] | + + + | Organization | [facility] | + + + | Address | Unknown | + + + | Phone | Unavailable | + + + Support + + +---------+ + | Name | Relationship | Address | Phone | + + +---------+ + | None,Provided | ECON | Unknown | | + + +---------+ + Care Team Providers + +------+ + | Care Cam Milling Machine Operator Name | Role | Phone | + +------+ + PCP | Unavailable | + +------+ + Reason for Visit + + + | Reason | Comments | + + + | Procedure | Schedule | + + + Encounter Details +--------+ + + + + | Date | Type | Department | Care Team | Description | +--------+ + + + + | 11/28/ | Telephone | [facility] | Mateus Heart MD | Procedure (Schedule) | | 2019 | | [facility] | [address] | | | | | [address] | [place] | | | | | [place] | [address] | | | | | [address] | | | | | | [phone] | | | +--------+ + + + [...] | | 2018 | Support | | CUSTOMER SERVICE ANALYST [address] | | | | | | Dr [place], | | | | | | [place] [address] | | | | | | [phone] | | | | | | | | +--------+ + + + + as of this encounter Visit Diagnoses Not on filein this encounter"
--- OUTSIDE RECORDS SUMMARY | ~2019-01-10 | XMS | Encounter Summary ---
Demographics + + + | Address | [address] | | | [place] [address] | + + + | Home Phone | | + + + | Preferred Language | Unknown | + + + | Marital Status | Single | + + + | Protestant Affiliation | Unknown | + + + | Race | Unknown | + + + | Ethnic Group | Unknown | + + + Author + + + | Author | [facility] [employer] [facility] | + + + | Organization | [facility] [facility] | + + + | Address | Unknown | + + + | Phone | Unavailable | + + + Support + + +---------+ + | Name | Relationship | Address | Phone | + + +---------+ + | None,Provided | ECON | Unknown | | + + +---------+ + Care Team Providers + +------+ + | Care Injection Moulding Machine Operator Name | Role | Phone [...] | | | 2018 | | [facility] [place] | | | | | | [address] | | | | | | [place] | | | | | | [address] | | | | | | [phone] | | | +--------+ + + + [...] [place], | | | | | | [place] [address] | | | | | | [phone] | | | | | | | | +--------+ + + + + as of this encounter Visit Diagnoses Not on filein this encounter"
--- OUTSIDE RECORDS SUMMARY | ~2019-01-10 | XMS | Encounter Summary ---
Demographics + + + | Address | [address] | | | [place] [address] | + + + | Home Phone | | + + + | Preferred Language | Unknown | + + + | Marital Status | Single | + + + | Latter Day Affiliation | Unknown | + + + | Race | Unknown | + + + | Ethnic Group | Unknown | + + + Author + + + | Author | [facility] [employer] [facility] | + + + | Organization | [facility] | + + + | Address | Unknown | + + + | Phone | Unavailable | + + + Support + + +---------+ + | Name | Relationship | Address | Phone | + + +---------+ + | None,Provided | ECON | Unknown | | + + +---------+ + Care Team Providers + +------+ + | Care Pathology Supervisor Name | Role | Phone | + +------+ + | None, Per Pt | PCP | 000-0000 | + +------+ + Encounter Details +--------+ + + + + | Date | Type | Department | Care Team | Description | +--------+ + + + + | 01/06/ | Procedure | [facility] | | | | 2019 | [facility] | | | | | | Operating Room [address] | | | | | | [facility] | | | | | | [place] [address] | | | | | | [phone] | | | +--------+ + + + [...] [place], | | | | | | [place] [address] | | | | | | [phone] | | | | | | | | +--------+ + + + + as of this encounter Visit Diagnoses Not on filein this encounter"
--- OUTSIDE RECORDS SUMMARY | ~2019-01-10 | XMS | Encounter Summary ---
Demographics + + + | Address | [address] | | | [place] [address] | + + + | Home Phone | | + + + | Preferred Language | Unknown | + + + | Marital Status | Single | + + + | Amish Affiliation | Unknown | + + + | Race | Unknown | + + + | Ethnic Group | Unknown | + + + Author + + + | Author | [facility] [employer] | + + + | Organization | [facility] | + + + | Address | Unknown | + + + | Phone | Unavailable | + + + Support + + +---------+ + | Name | Relationship | Address | Phone | + + +---------+ + | None,Provided | ECON | Unknown | | + + +---------+ + Care Team Providers + +------+ + | Care Drying Can Worker Name | Role | Phone | + +------+ + | None, Per Pt | PCP | 000-0000 | + +------+ + Encounter Details +--------+ + + + + | Date | Type | Department | Care Team | Description | +--------+ + + + + | 12/31/ | Orders Only | [facility] | Haleigh Turcios RN | | | 2018 | | [facility] [place] | | | | | | [address] | | | | | | [place] | | | | | | [address] | | | | | | [phone] | | | +--------+ + + + [...] [place], | | | | | | [place] [address] | | | | | | [phone] | | | | | | | | +--------+ + + + + as of this encounter Visit Diagnoses Not on filein this encounter"
--- OUTSIDE RECORDS SUMMARY | ~2019-01-10 | XMS | Encounter Summary ---
Demographics + + + | Address | [address] | | | [place] [address] | + + + | Home Phone | | + + + | Preferred Language | Unknown | + + + | Marital Status | Single | + + + | Shinto Affiliation | Unknown | + + + | Race | Unknown | + + + | Ethnic Group | Unknown | + + + Author + + + | Author | [facility] [employer] | + + + | Organization | [facility] | + + + | Address | Unknown | + + + | Phone | Unavailable | + + + Support + + +---------+ + | Name | Relationship | Address | Phone | + + +---------+ + | None,Provided | ECON | Unknown | | + + +---------+ + Care Team Providers + +------+ + | Care Battery Test Engineer Name | Role | Phone | [...] | [address] | | | | | [address] | | | | | | [phone] | | | +--------+ + + + [...] | | 2018 | Support | | PROGRAM DIRECTOR GROUP WORK [address] | | | | | | Dr [place], | | | | | | [place] [address] | | | | | | [phone] | | | | | | | | +--------+ + + + + as of this encounter Visit Diagnoses Not on filein this encounter"
--- OUTSIDE RECORDS SUMMARY | ~2019-01-10 | XMS | Encounter Summary ---
Demographics + + + | Address | [address] | | | [place] [address] | + + + | Home Phone | | + + + | Preferred Language | Unknown | + + + | Marital Status | Single | + + + | Tenriism Affiliation | Unknown | + + + | Race | Unknown | + + + | Ethnic Group | Unknown | + + + Author + + + | Author | [facility] [employer] [facility] | + + + | Organization | [facility] | + + + | Address | Unknown | + + + | Phone | Unavailable | + + + Support + + +---------+ + | Name | Relationship | Address | Phone | + + +---------+ + | None,Provided | ECON | Unknown | | + + +---------+ + Care Team Providers + +------+ + | Care Call Center Receptionist Name | Role | Phone | + +------+ + PCP | Unavailable | + +------+ + Reason for Visit + + + | Reason | Comments | + + + | Follow-up | | + + + Consultation (Routine) + +--------+ + + + + | Status | Reason | Specialty | Diagnoses / | Referred By | Referred To | | | | | Procedures | Contact | Contact | + +--------+ + + + + | Authorized | | Neurosurgery | Diagnoses | Jhonny | Jose Torres | | | | | | [facility]ero | Neurosurgery | | | | | Intervertebr | [address] | | | | | al disc | [facility] | [address] | | | | | disorders | [place] | | | | | with | [place] [address] | [place], [place] | | | | | radiculopath | Phone: | [phone] | | | | | y, lumbar | [phone] | Phone: | | | | | region | Fax: | [phone] | | | | | [facility] | [phone] | Fax: | | | | | nodes, | | [phone] | | | | | thoracic | | | | | | | region | | | | | | | Other | | | | | | | intervertebr | | | | | | | al disc | | | | | | | displacement | | | | | | | , lumbar | | | | | | | region Low | | | | | | | back pain | | | + +--------+ + + + + Encounter Details +--------+---------+ + + + | Date | Type | Department | Care Team | Description | +--------+---------+ + + + | 10/31/ | Office | [facility] | Mateus Heart MD | Lumbar disc | | 2019 | Visit | [facility] [place] | [address] | herniation with | | | | [address] | Drive [place], [place] | radiculopathy | | | | [place] | [address] | (Primary Dx); Lumbar | | | | [address] | | radiculopathy | | | | [phone] | | | +--------+---------+ + + + [...] + + + + | Weight | 103 kg (227 lb) | 10/31/2018 10:40 AM PST | + + + + | Height | 170.2 cm (5' 7") | 10/31/2018 10:40 AM PST | + + + + | Body Mass Index | 35.55 | 10/31/2018 10:40 AM PST | + + + + in this encounter Progress Notes Mateus Heart MD - 10/31/2018 10:45 AM PSTSubjective: This is a follow-up visit for this 38-year-old gentleman. He has a history of right L4-5 he rniated disc. He continues to complain of radicular pain into the leg. This followed an inju ry from July lifting a heavy ladder. He is unable to undergo an injection because of his insurance. He is not really making any progress and would want to consider an operation at t his point. Objective: Some weakness with right leg getting up on step to exam table. Left leg strength is full. Reflexes: 1+ right knee, 2+ left knee, 1+ ankles. Sensation: Numbness to LT, PP right L4-5 distribution. SLR is positive. Imaging: IMAGING STUDIES: Both the films and available radiology reports are personally reviewed. MRI lumbar spine done on 07/31/2018: Lumbar disc degeneration most significant at L4-5 and L5-S1 and disc herniation at L4-5 lev el is concentric to the right with possible compression of the right L4 nerve root and trans versing right L5 nerve root. Moderate central canal stenosis at L4-5 level. Assessment/Plan: 38-year-old gentleman with right L4-5 herniated disc. Clinically he has not really made any progress. He is not a candidate for injections because his insurance does not cover it. Oth er than pain management approaches, I think surgery would be a reasonable option. We did di scuss the typical hospital stay, usual risks and recovery for the procedure. We did discuss that this is usually a minimally invasive type surgery, however it will necessitate some luis n time and recovery postop. I answered all of his questions. We will submit the discectomy for approval and get it scheduled once that is received. CC: No primary care provider on file. Note: We spent approximately 25 minutes in bber-xl-vlxi time of which greater than 50% was involved in counseling/coordination of care. in this encounter Plan of Treatment +--------+ + + + + | Date | Type | Specialty | Care Team | Description | +--------+ + + + + | 01/16/ | Clinical | Neurosurgery | Hansel Treviño, | | | 2018 | Support | | [place] | | | | | | Dr [place], | | | | | | [place] [address] | | | | | | [phone] | | | | | | | | +--------+ + + + + as of this encounter Procedures + +--------+ + + + | Procedure Name | Priori | Date/Time | Associated Diagnosis | Comments | | | ty | | | | + +--------+ + + + | CASE REQUEST | Routin | 10/31/2018 | | | | OPERATING ROOM | e | 9:54 PM | | | | | | PST | | | + +--------+ + + + in this encounter Visit Diagnoses + + | Diagnosis | + + | Lumbar disc herniation with radiculopathy - Primary | + + | Displacement of lumbar intervertebral disc without myelopathy | + + | Lumbar radiculopathy | + + | Thoracic or lumbosacral neuritis or radiculitis, unspecified | + +
--- OUTSIDE RECORDS SUMMARY | ~2019-01-10 | XMS | Encounter Summary ---
Demographics + + + | Address | [address] | | | [place] [address] | + + + | Home Phone | | + + + | Preferred Language | Unknown | + + + | Marital Status | Single | + + + | Mormonism Affiliation | Unknown | + + + | Race | Unknown | + + + | Ethnic Group | Unknown | + + + Author + + + | Author | [facility] [employer] [facility] | + + + | Organization | [facility] | + + + | Address | Unknown | + + + | Phone | Unavailable | + + + Support + + +---------+ + | Name | Relationship | Address | Phone | + + +---------+ + | None,Provided | ECON | Unknown | | + + +---------+ + Care Team Providers + +------+ + | Care Business Records Manager Name | Role | Phone | + [...] + + | 01/09/ | Telephone | [facility] | Mateus Heart MD | Post-op Problem | | 2019 | | [facility] | [address] | (pain) | | | | [address] | [place] [facility] [place] | | | | | [place] | [address] | | | | | [address] | | | | | | [phone] | | | +--------+ + + + [...] | | 2018 | Support | | SYSTEM OPERATION SUPERINTENDENT [address] | | | | | | Dr [place], | | | | | | [place] [address] | | | | | | [phone] | | | | | | | | +--------+ + + + + as of this encounter Visit Diagnoses Not on filein this encounter"
--- OUTSIDE RECORDS SUMMARY | ~2019-01-10 | XMS | Encounter Summary ---
Demographics + + + | Address | [address] | | | [place] [address] | + + + | Home Phone | | + + + | Preferred Language | Unknown | + + + | Marital Status | Single | + + + | Orthodox Affiliation | Unknown | + + + | Race | Unknown | + + + | Ethnic Group | Unknown | + + + Author + + + | Author | [facility] [employer] | + + + | Organization | [facility] | + + + | Address | Unknown | + + + | Phone | Unavailable | + + + Support + + +---------+ + | Name | Relationship | Address | Phone | + + +---------+ + | None,Provided | ECON | Unknown | | + + +---------+ + Care Team Providers + +------+ + | Care Electronic Equipment Maint Tech Name | Role | Phone | + [...] | | | | with | [place] [address] | [place], [place] | | | | | radiculopath | Phone: | [phone] | | | | | y, lumbar | [phone] | Phone: | | | | | region | Fax: | [phone] | | | | | [facility] | [phone] | Fax: | | | | | nodes, | | [phone] | | | | | thoracic | [...] + + | 10/31/ | Office | [facility] | Mateus Heart MD | Lumbar disc | | 2019 | Visit | [facility] [place] | [address] | herniation with | | | | [address] | Drive [place], [place] | radiculopathy | | | | [place], [place] | [address] | (Primary Dx); Lumbar | | | | [address] | | radiculopathy | | | | [phone] | | | +--------+---------+ + + + [...] Note: We spent approximately 25 minutes in iktg-di-tzmv time of which greater than 50% was [...] | | | | | | [place] [address] | | | | | | [phone] | | | | | | | [...]
--- OUTSIDE RECORDS SUMMARY | ~2019-01-10 | XMS | Encounter Summary ---
Demographics + + + | Address | [address] | | | [place] [address] | + + + | Home Phone [...] + + + | Author | [employer] | + + + | Organization | [facility] [employer] | + + + | Address | Unknown | + + + | Phone | Unavailable | + + + Support + + +---------+ + | Name | Relationship | Address | Phone | + + +---------+ + | None,Provided | ECON | Unknown | | + + +---------+ + Care Team Providers + +------+ + | Care Drafting Detailer Name | Role | Phone | + +------+ + | None, Per Pt | PCP | [id number] | + +------+ + Encounter Details +--------+ + + + + | Date | Type | Department | Care Team | Description | +--------+ + + + + | 12/31/ | Orders Only | [facility] | Haleigh Turcios RN | | | 2018 | | [facility] [place] [facility] | | | | | | [address] | | | | | | [place] | | | | | | [address] | | | | | | [phone] | | | +--------+ + + + [...] | | | | | | [place] [address] | | | | | | [phone] | | | | | | | | +--------+ + + + + as of this encounter Visit Diagnoses Not on filein this encounter"
[~2019-01-10 09:06] MED LIST changes: +METHYLPREDNISOLO4 M1 PO; +ZITHROMAX250 MG PO
--- OUTSIDE RECORDS SUMMARY | 2019-01-10 09:10 | XMS ---
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 Soraya VISIT COUNT (12 MO.) 2 YSABEL Gonzalez TOTAL 2 NOTE: Visits indicate total known visits. ED/UCC VISIT TRACKING (12 MO.) 01/10/2019 09:07 YSABEL Mcgill OR TYPE: Emergency COMPLAINT: - BACK PAIN, NOT FEELING LEGS, 01/29/2018 18:07 YSABEL Mcgill OR TYPE: Emergency COMPLAINT: - SHORTNESS OF BREATH DIAGNOSES: - Allergy status to narcotic agent status - Shortness of breath - Unspecified asthma with (acute) exacerbation - Allergy status to analgesic agent status INPATIENT VISIT TRACKING (12 MO.) No inpatient visits to display in this time frame [email or web address]
[2019-01-10] MEDS ORDERED: DIAZEPAM5 MG PO (09:21)
[2019-01-10] MEDS ORDERED: NORCO 7.5-3251 EACH PO (09:21)
== END 2019-01-10 09:53 | disposition home or self-care (01) ==
LOC: ED 09:06
DX: G89.18 Other acute postprocedural pain (principal); M54.5 Low back pain; J45.909 Unspecified asthma, uncomplicated; Z88.5 Allergy status to narcotic agent; Z88.6 Allergy status to analgesic agent
CPT/HCPCS: 99283

== ENCOUNTER 2021-03-14 01:25 | Emergency (ER) | payer OTHER ==
[~2021-03-14] VITALS: Ht 170.2 cm; Wt 99.8 kg
[~2021-03-14 01:25] MED LIST changes: +DIAZEPAM5 MG PO; +NORCO 7.5-3251 EACH PO
--- OUTSIDE RECORDS SUMMARY | 2021-03-14 01:28 | XMS ---
PreManage Notification: NERI PHOENIX Security Nutrition Partner Events No recent Security Events currently on file CRITERIA MET - Group Notification CARE PROVIDERS IGNACIA LOVELL Physician Health Information Provider 01/13/2019-Current PHONE: [phone] Maykel has no Care Guidelines for this patient. [place] VISIT COUNT (12 MO.) 1 [facility]EL Gonzalez TOTAL 1 NOTE: Visits indicate total known visits. ED/UCC VISIT TRACKING (12 MO.) 03/14/2021 01:26 [facility] [place] TYPE: Emergency COMPLAINT: - HEADACHE, DRY MOUTH, RAPID HEART BEAT INPATIENT VISIT TRACKING (12 MO.) No inpatient visits to display in this time frame [email or web address]
--- NOTE | 2021-03-15 09:36 | EKG ---
[facility] [address] [facility] [place], [place] [address] Signed Normal sinus rhythm with sinus arrhythmia Nonspecific intraventricular conduction delay Borderline ECG No previous ECGs available Confirmed by JORDYN GARCIA MD ([id number]) on 03/15/2021 9:36:23 AM Electronically Signed By: JORDYN GARCIA MD 03/15/21 0936 PATIENT NAME: NERI PHOENIX SILAS Electrocardiogram DATE OF : 78 PHYSICIAN: JORDYN GARCIA MD REPORT #: [id number] REPORT IS CONFIDENTIAL AND NOT TO BE RELEASED WITHOUT AUTHORIZATION
== END 2021-03-14 03:18 | disposition home or self-care (01) ==
LOC: ED 01:25
DX: F15.90 Other stimulant use, unspecified, uncomplicated (principal); Z72.820 Sleep deprivation; J45.909 Unspecified asthma, uncomplicated; Z88.5 Allergy status to narcotic agent; Z88.8 Allergy status to other drugs, medicaments and biological substances; Z91.010 Allergy to peanuts; Z79.899 Other long term (current) drug therapy
CPT/HCPCS: 80053; 80176; 81001; 84443; 85025; 93005; 93010; 99284-25

== ENCOUNTER 2021-05-21 13:28 | Emergency (ER) | payer OTHER ==
[~2021-05-21] VITALS: Ht 170.2 cm; Wt 98.4 kg
--- OUTSIDE RECORDS SUMMARY | 2021-05-21 13:36 | XMS ---
PreManage Notification: NERI PHOENIX Security Cable Dispatcher Events No recent Security Events currently on file CRITERIA MET - Group Notification CARE PROVIDERS IGNACIA LOVELL Physician Principal Java Developer 01/13/2019-Current PHONE: [phone] Maykel has no Care Guidelines for this patient. [place] VISIT COUNT (12 MO.) 2 YSABEL Gonzalez TOTAL 2 NOTE: Visits indicate total known visits. ED/UCC VISIT TRACKING (12 MO.) 05/21/2021 13:29 [facility] [place] TYPE: Emergency COMPLAINT: - SKIN PROBLEM 03/14/2021 01:26 [facility] [place] TYPE: Emergency COMPLAINT: - HEADACHE, DRY MOUTH, RAPID HEART BEAT DIAGNOSES: - Allergy status to narcotic agent - Unspecified asthma, uncomplicated - Allergy to peanuts - Allergy status to other drugs, medicaments and biological substances - Sleep deprivation - Other stimulant use, unspecified, uncomplicated - Other termite renewal inspector (current) drug therapy INPATIENT VISIT TRACKING (12 MO.) No inpatient visits to display in this time frame [email or web address]
[2021-05-21] MEDS ORDERED: CLINDAMYCIN HC300 MG PO (18:00)
[2021-05-21] MEDS ORDERED: HYDROCODON-ACE1 EA10 PO (18:17)
--- NOTE | 2021-05-22 12:02 | OR ---
[facility] [address] [place], [place] [address] Signed DATE OF OPERATION: 05/21/2021 SURGEON: Lucero Sanfrod MD PREOPERATIVE DIAGNOSIS: Anterior perianal abscess. POSTOPERATIVE DIAGNOSES: Anterior perianal abscess. PROCEDURE: Incision and drainage of perianal abscess. ANESTHESIA: Fentanyl 100 mcg IV and 6 mL of 0.25% Marcaine with epinephrine. INDICATION: This 40-year-old white man presents to emergency room upon referral to the emergency room by Ms. of the Urgent Care Clinic. He was evaluated by Dr. Orozco which included a CT scan of the perineum showing a small perianal abscess. Clinical evidence shows an anterior perianal abscess which is attempting to necessitate on its own, but has not had any drainage. There is no sign of surrounding cellulitis. I have recommended incision and drainage under local anesthesia in the emergency room as I do not believe he needs the extent of operating room at this point. The risk of bleeding, infection, sphincteric dysfunction, fistula formation, so forth were all reviewed with him. He understands and wished to proceed. FINDINGS: IV sedation did not cause profound sedation by any means. It did assist in local anesthetic administration. Incision and drainage showed primarily thinnish somewhat bloody fluid. No deep pockets of purulence. There were no complications. DESCRIPTION OF PROCEDURE: In the prone bryan-knife position, the buttocks were taped apart and the patient was given intravenous fentanyl 100 mcg in total under full monitoring with O2 saturation, blood pressure cuff and so on. The patient was cooperative throughout the procedure. The perianal area was prepared with a Betadine solution and draped sterilely. About 6 mL of 0.25% Marcaine was injected locally. When the area appeared completely anesthetized, an 11 blade was used to incise the bulging area. Egress of thin bloody fluid was noted. There was no sign of thick purulence. Gentle probing of the depths of Electronically Signed By: LUCERO SANFORD MD 05/22/21 1202 PATIENT NAME: NERI PHOENIX OPERATIVE REPORT DATE OF : 78 REPORT #: [id number] PHYSICIAN: LUCERO SANFORD MD PCP: ROGELIO LOVELL REPORT IS CONFIDENTIAL AND NOT TO BE RELEASED WITHOUT AUTHORIZATION [facility] [address] [place] [id number] Signed the wound with hemostat was undertaken. Additional local anesthetic was administered as necessary. This allowed for decompression of the swollen area completely. Oozing of blood eventually ceased. The area was packed with plain gauze. The patient was ultimately returned to the supine position. Vital signs were checked again and found to be satisfactory with an O2 saturation of 98% on room air, blood pressure 112 systolic. The patient has already been prescribed clindamycin, which he will continue. I have recommended sitz baths daily since he has no actual bathtub basin soaking or shower on a daily basis. He will return to the ongoing care of his primary provider. The patient is a member of the [employer] (JAJA [employer]uelos). If there are any other issues, I am happy to assist. Lucero Sanford MD JM/MODL /[id number] cc: Dr. Aristides Orozco Ms. Copies: ~ Electronically Signed By: LUCERO SANFORD MD 05/22/21 1202 PATIENT NAME: NERI PHOENIX OPERATIVE REPORT DATE OF : 78 REPORT #: [id number] PHYSICIAN: LUCERO SANFORD MD PCP: ROGELIO LOVELL REPORT IS CONFIDENTIAL AND NOT TO BE RELEASED WITHOUT AUTHORIZATION
--- NOTE | 2021-05-22 12:02 | CONS ---
[facility] [address] [place], [place] [address] Signed DATE OF CONSULTATION: 05/21/2021 CONSULTING PHYSICIAN: Lucero Sanford MD REQUESTING PHYSICIAN: Dr. Aristides Orozco. PROBLEM: Anterior perianal abscess. HISTORY OF PRESENT ILLNESS: This 40-year-old white man is accompanied by his girlfriend. He presented to the emergency room upon referral from the Urgent Care Center by OMAR Barnhart in the Urgent Care Area. He is noted to have approximately 3 or 4 days of increasing perianal pain anteriorly. He was evaluated by Dr. Orozco, who noted an area of fluctuance in the anterior perianal area and a CT scan was performed. This showed findings consistent with a very small perianal abscess. It measured approximately 1.4 cm in maximum dimension. There was no sign of fistulous tract or extension to the ischiorectal fat. Consultation was undertaken as the need for drainage was quite evident. PAST MEDICAL HISTORY: Relatively unremarkable. He denies any other major ongoing medical problems. SOCIAL HISTORY: He is accompanied by his girlfriend. The patient works at the [employer] locally. He has been working with this painful problem which has progressed. REVIEW OF SYSTEMS: Denies shortness of breath or chest pain. He has had no fever or chills. His anal pain has been progressive and worse today. PHYSICAL EXAMINATION: GENERAL: A stocky well tanned extensively tattooed white man accompanied by his girlfriend. HEENT: Trachea is midline. CHEST: Shows normal respiratory excursion. VITAL SIGNS: Pulse is regular, blood pressure is 112 systolic, O2 saturation on room air is 98%. ABDOMEN: Nondistended. EXTREMITIES: Show no clubbing, cyanosis, or edema. Examination the perianal area shows an area nearly pointing imminently for drainage Electronically Signed By: LUCERO SANFORD MD 05/22/21 1202 PATIENT NAME: NERI PHOENIX CONSULTATION DATE OF : 78 REPORT #: [id number] PHYSICIAN: LUCERO SANFORD MD PCP: ROGELIO LOVELL REPORT IS CONFIDENTIAL AND NOT TO BE RELEASED WITHOUT AUTHORIZATION [facility] [address] [place], [place] [address] Signed anteriorly. It measures approximately 2 cm x 2 cm. It is not lateral but anteriorly oriented. ASSESSMENT: As clinically noted, CT scan does confirm small abscess in the perianal area. I do not believe this is extensive enough to require intervention in the operating room setting. I would recommend incision and drainage at the bedside. Discussed the risk of bleeding, infection, sphincteric dysfunction, fistula formation, and so forth with the patient and his girlfriend. They understand, they wished to proceed under local in the emergency room setting. MD BETZY Reis/ALEXL /[id number] cc: Dr. Aristides Orozco Copies: ~ Electronically Signed By: LUCERO SANFORD MD 05/22/21 1202 PATIENT NAME: NERI PHOENIX CONSULTATION DATE OF : 78 REPORT #: [id number] PHYSICIAN: LUCERO SANFORD MD PCP: ROGELIO LOVELL REPORT IS CONFIDENTIAL AND NOT TO BE RELEASED WITHOUT AUTHORIZATION
== END 2021-05-21 18:44 | disposition home or self-care (01) ==
LOC: ED 13:28
DX: K61.1 Rectal abscess (principal); J45.909 Unspecified asthma, uncomplicated; Z88.5 Allergy status to narcotic agent; Z88.8 Allergy status to other drugs, medicaments and biological substances; Z91.010 Allergy to peanuts; Z79.899 Other long term (current) drug therapy
CPT/HCPCS: 74177; 80053; 85025; 96374; 99284-25; J3010; Q9967

== ENCOUNTER 2021-06-11 11:00 | Emergency (ER) | payer OTHER ==
[~2021-06-11] VITALS: Ht 170.2 cm; Wt 95.2 kg
[~2021-06-11 11:00] MED LIST changes: +CLINDAMYCIN HC300 MG PO; +HYDROCODON-ACE1 EA10 PO
--- OUTSIDE RECORDS SUMMARY | 2021-06-11 11:04 | XMS ---
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 Soraya VISIT COUNT (12 MO.) 3 [facility] TOTAL 3 NOTE: Visits indicate total known visits. 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 - Other specified diseases of anus and rectum - Allergy to peanuts - Rectal abscess - Unspecified asthma, uncomplicated 03/14/2021 01:26 [facility] [place] TYPE: Emergency COMPLAINT: - HEADACHE, DRY MOUTH, RAPID HEART BEAT DIAGNOSES: - Allergy status to narcotic agent - Unspecified asthma, uncomplicated - Allergy to peanuts - Allergy status to other drugs, medicaments and biological substances - Sleep deprivation - Other stimulant use, unspecified, uncomplicated - 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
== END 2021-06-11 12:00 | disposition home or self-care (01) ==
LOC: ED 11:00
DX: F20.89 Other schizophrenia (principal); J45.909 Unspecified asthma, uncomplicated; Z88.5 Allergy status to narcotic agent; Z91.010 Allergy to peanuts; Z88.8 Allergy status to other drugs, medicaments and biological substances
CPT/HCPCS: 99284

== ENCOUNTER 2021-06-12 22:33 | Emergency (ER) | payer OTHER ==
[~2021-06-12] VITALS: Ht 170.2 cm; Wt 98.4 kg
--- OUTSIDE RECORDS SUMMARY | 2021-06-12 22:36 | XMS ---
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 Soraya VISIT COUNT (12 MO.) 4 [facility] TOTAL 4 NOTE: Visits indicate total known visits. ED/UCC VISIT TRACKING (12 MO.) 06/12/2021 22:33 [facility] [place] TYPE: Emergency COMPLAINT: - COLD SYMPTOMS 06/11/2021 11:01 [facility] [place] TYPE: Emergency COMPLAINT: - MEDICAL CLEARANCE 05/21/2021 13:[address] 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 [place] TYPE: Emergency COMPLAINT: - HEADACHE, DRY MOUTH, RAPID HEART BEAT DIAGNOSES: - Allergy status to narcotic agent - Unspecified asthma, uncomplicated - Allergy to peanuts - Allergy status to other drugs, medicaments and biological substances - Sleep deprivation - Other stimulant use, unspecified, uncomplicated - Other manager long term care (current) drug therapy INPATIENT VISIT TRACKING (12 MO.) No inpatient visits to display in this time frame [email or web address]
== END 2021-06-13 01:29 | disposition home or self-care (01) ==
LOC: ED 22:33
DX: J06.9 Acute upper respiratory infection, unspecified (principal); Z20.822 Contact with and (suspected) exposure to COVID-19; J45.909 Unspecified asthma, uncomplicated; Z88.5 Allergy status to narcotic agent; Z88.8 Allergy status to other drugs, medicaments and biological substances; Z91.010 Allergy to peanuts
CPT/HCPCS: 99284; C9803; U0003